=== PATIENT | male | born 1940 | race Caucasian/White ===

== ENCOUNTER 2018-09-10 18:26 | Inpatient (IN) | payer MEDICAID ==
[~2018-09-10] VITALS: Ht 165.1 cm; Wt 63.9 kg
[2018-09-10] MEDS ORDERED: ONDANSETRON 4 MG INJ IV STA (18:51)
[2018-09-10] MEDS ORDERED: SOD CHLORIDE 0.9% 1,000 ML IV STA (18:51)
[2018-09-10] MEDS ORDERED: morphine 4 MG/ML VIAL IV STA (18:51)
[2018-09-10] MEDS ORDERED: INSULIN LISPRO 100 UNIT/ML VIAL SC ONE (20:00)
[2018-09-10] MEDS ORDERED: ACCU-CHEK XX ONE (20:00)
[2018-09-10] MEDS ORDERED: NACL 0.9% 3 ML SYG IV SCH (20:30)
[2018-09-10] MEDS ORDERED: GLUCOSE GEL 15 GRAM TUBE BUCCAL PRN (20:30)
[2018-09-10] MEDS ORDERED: INSULIN GLARGINE [LANTus] (100 UNITS/ML) SYG SC ONE (20:30)
[2018-09-10] MEDS ORDERED: BISACODYL (EC) 5 MG TAB PO PRN (20:30)
[2018-09-10] MEDS ORDERED: DEXTROSE 50% 50 ML SYRINGE IV PRN ×2 (20:30)
[2018-09-10] MEDS ORDERED: DOCUSATE SODIUM 100 MG CAP PO PRN (20:30)
[2018-09-10] MEDS ORDERED: GLUCOSE GEL 15 GRAM TUBE PO PRN ×2 (20:30)
[2018-09-10] MEDS ORDERED: SOD CHLORIDE 0.9% 1,000 ML IV ONE (20:30)
[2018-09-10] MEDS ORDERED: GLUCAGON 1 MG INJ IM PRN (20:30)
--- NOTE | 2018-09-10 20:32 | ERD ---
ER Documentation Chief Complaint Chief Complaint FEELING WEAK X'S 3 DAYS, WITH ABD PAIN HPI Patient is a 78-year-old male with diabetes who presents with generalized weakness. The patient has lower abdominal pain and dizziness as well. The patient has had 3 days of symptoms. He recently got back from [facility] and forgot his diabetes medications there. The family does not know what medications he is supposed to be on. The patient denies fevers. He is urinating. Upon review of old medical records this is the patient's first visit to the emergency department. He does not currently have a primary doctor. ROS All systems reviewed and are negative except as per history of present illness. Allergies Allergies: Coded Allergies: No Known Allergy (Unverified , 09/10/18) PMhx/Soc History of Surgery: No Anesthesia Reaction: No Hx Neurological Disorder: No Hx Respiratory Disorders: No Hx Cardiac Disorders: No Hx Psychiatric Problems: No Hx Miscellaneous Medical Probl: No Hx Alcohol Use: No Hx Substance Use: No Hx Tobacco Use: No Smoking Status: Never smoker FmHx Family History: No diabetes Physical Exam Vitals Vital Signs Date Temp Pulse Resp B/P (MAP) Pulse Ox O2 O2 Flow FiO2 Time Delivery Rate 09/10/18 79 16 138/89 99 Room Air 19:57 (105) 09/10/18 98.3 87 18 130/73 98 18:29 (92) Physical Exam Const: No acute distress Head: Atraumatic Eyes: Normal Conjunctiva ENT: Normal External Ears, Nose and Mouth. Neck: Full range of motion. No meningismus. Resp: Clear to auscultation bilaterally Cardio: Regular rate and rhythm, no murmurs Abd: Soft, non tender, non distended. Normal bowel sounds Skin: No petechiae or rashes Back: No midline or flank tenderness Ext: No cyanosis, or edema Neur: Awake and alert Psych: Normal Mood and Affect Result Diagram: 09/10/18190409/10/181904 Results 24 hrs Laboratory Tests Test 09/10/18 19:05 09/10/18 20:08 White Blood Count 6.6 10^3/ul Red Blood Count 3.67 10^6/ul Hemoglobin 10.9 g/dl Hematocrit 32.1 % Mean Corpuscular Volume 87.5 fl Mean Corpuscular Hemoglobin 29.7 pg Mean Corpuscular Hemoglobin Concent 34.0 g/dl Red Cell Distribution Width 12.7 % Platelet Count 185 10^3/UL Mean Platelet Volume 11.3 fl Immature Granulocytes % 0.300 % Neutrophils % 62.3 % Lymphocytes % 24.8 % Monocytes % 7.3 % Eosinophils % 4.4 % Basophils % 0.9 % Nucleated Red Blood Cells % 0.0 /100WBC Immature Granulocytes # 0.020 10^3/ul Neutrophils # 4.1 10^3/ul Lymphocytes # 1.6 10^3/ul Monocytes # 0.5 10^3/ul Eosinophils # 0.3 10^3/ul Basophils # 0.1 10^3/ul Nucleated Red Blood Cells # 0.0 10^3/ul Sodium Level 133 mmol/L Potassium Level 4.9 mmol/L Chloride Level 99 mmol/L Carbon Dioxide Level 24 mmol/L Anion Gap 10 Blood Urea Nitrogen 32 mg/dl Creatinine 2.27 mg/dl Est Glomerular Filtrat Rate mL/min mL/min Glucose Level 660 mg/dl Calcium Level 9.0 mg/dl Total Bilirubin 0.2 mg/dl Direct Bilirubin 0.00 mg/dl Indirect Bilirubin 0.2 mg/dl Aspartate Amino Transf (AST/SGOT) 24 IU/L Alanine Aminotransferase (ALT/SGPT) 24 IU/L Alkaline Phosphatase 70 IU/L Total Protein 6.9 g/dl Albumin 3.8 g/dl Globulin 3.10 g/dl Albumin/Globulin Ratio 1.22 Lipase 279 U/L Urine Color STRAW Urine Clarity CLEAR Urine pH 6.0 Urine Specific [place] 1.014 Urine Ketones NEGATIVE mg/dL Urine Nitrite NEGATIVE mg/dL Urine Bilirubin NEGATIVE mg/dL Urine Urobilinogen NEGATIVE mg/dL Urine Leukocyte Esterase NEGATIVE David/ul Urine Hemoglobin NEGATIVE mg/dL Urine Glucose 3+ mg/dL Urine Total Protein NEGATIVE mg/dl Current Medications Medications Dose Sig/Ida Start Time Status Last (Trade) Ordered Route PRN Stop Time Admin Dose Reason Admin Sodium 1,000 ml @ Q1H STAT 09/10/18 DC 09/10/18 Chloride 1,000 mls/hr IV 18:51 19:29 09/10/18 19:50 Morphine 4 mg ONCE STAT 09/10/18 DC 09/10/18 Sulfate IV 18:51 19:29 (morphine) 09/10/18 18:52 Ondansetron 4 mg ONCE STAT 09/10/18 DC 09/10/18 HCl (Zofran IV 18:51 19:29 Inj) 09/10/18 18:52 Insulin 20 unit ONCE ONCE 09/10/18 DC 09/10/18 Human SC 20:00 20:06 Lispro 09/10/18 20:01 (Humalog) Diagnostic 1 ea 2 HRS AFTER 09/10/18 DC Test (Pha) HUMALOG ONCE 20:00 (Accu-Chek) XX 09/10/18 20:01 Insulin 15 units ONCE ONCE 09/10/18 Glargine SC 20:30 (Lantus) 09/10/18 20:31 1 ea NOTE XX 09/10/18 Miscellaneous 20:30 Information Glucose 15 gm Q15M PRN 09/10/18 (Glutose) PO DECREASED 20:30 GLUCOSE Glucose 22.5 gm Q15M PRN 09/10/18 (Glutose) PO DECREASED 20:30 GLUCOSE Dextrose 25 ml Q15M PRN 09/10/18 (D50w IV DECREASED 20:30 Syringe) GLUCOSE Dextrose 50 ml Q15M PRN 09/10/18 (D50w IV DECREASED 20:30 Syringe) GLUCOSE Glucagon 1 mg Q15M PRN 09/10/18 (Glucagen) IM DECREASED 20:30 GLUCOSE Glucose 15 gm Q15M PRN 09/10/18 (Glutose) BUCCAL 20:30 DECREASED GLUCOSE Sodium 1,000 ml @ Q1H ONCE 09/10/18 Chloride 1,000 mls/hr IV 20:30 09/10/18 21:29 Sodium 1,000 ml @ [id number] IV 09/10/18 Chloride 80 mls/hr 20:21 IV Flush 3 ml PER 09/10/18 (NS 3 ml) PROTOCOL IV 20:30 650 mg Q6H PRN 09/10/18 Acetaminophen PO .PAIN 1-3 20:30 (Tylenol OR TEMP Tab) Docusate 100 mg Q12H PRN 09/10/18 Sodium PO 20:30 (Colace) .CONSTIPATION Bisacodyl 5 mg DAILY PRN 09/10/18 (Dulcolax) PO 20:30 .CONSTIPATION Discontinue ONCE ONCE 09/10/18 Miscellaneous current oral XX 20:30 sulfonylur... 09/10/18 20:31 Information (* Miscellaneous Pharmacy Order) Diagnostic 1 ea 02 XX 09/11/18 Test (Pha) 02:00 (Accu-Chek) ONCE ONCE 09/10/18 Miscellaneous HYPOGLYCEMIA XX 20:30 PROTOCOL 09/10/18 20:31 Information w... (* Miscellaneous Pharmacy Order) Insulin NOVOLOG Q4 SC 09/10/18 Aspart *MILD* 21:00 (Novolog ALGORI... Insulin Pen) Discontinue ONCE ONCE 09/10/18 Miscellaneous all previ... XX 20:30 09/10/18 20:31 Information (* Miscellaneous Pharmacy Order) Procedures/MDM EKG read by me: Rate/Rhythm: Regular rate and rhythm at a normal rate Intervals: Normal Impression: No evidence of ischemia or arrhythmia Patient is a 78-year-old male with diabetes presents with generalized weakness. The patient was found to have acute renal failure. I have no old creatinine to compare to and the creatinine is greater than 2. The patient was found to have hyperglycemia with a sugar of 660 but no DKA. The patient was given normal saline 1 L bolus as well as Humalog 20 units subcutaneous. The patient will be admitted to the care of Dr. Chou from the panel team to a medical surgical bed. I doubt stroke or sepsis. Departure Diagnosis: Primary Impression: ARF (acute renal failure) Acute renal failure type: unspecified Qualified Codes: N17.9 - Acute kidney failure, unspecified Additional Impressions: Acute weakness Hyperglycemia Condition: FANTASMA Mario MD Sep 10, 2018 20:32
--- NOTE | 2018-09-10 20:37 | HP ---
Date/Time of Note Date/Time of Note DATE: 09/10/18 TIME: 20:37 Assessment/Plan VTE Prophylaxis SCD applied (from Nsg): Yes Pharmacological prophylaxis: NA/contraindicated Pharm contraindication: low risk/ambulating Lines/Catheters IV Catheter Type (from Nrsg): Saline Lock Assessment/Plan Hospital Course This is a 78-year-old male being admitted to the telemetry floor for: #1 severe hyperglycemia: Patient is not in DKA. Secondary to medication noncompliance. Will check hemoglobin A1c. Patient was given NovoLog in the emergency department, I will also order Lantus weight-based. Will check hemoglobin A1c. Insulin sliding scale. Urine microalbumin. #2 uncontrolled diabetes mellitus: Check hemoglobin A1c, optimize blood sugar regimen, will check lipid panel, TSH see #1. #3 RADHA: We do not have a previous baseline creatinine. Possibly mixed postrenal/medical renal in nature. Patient does have evidence of bladder outlet obstruction, hydroureteronephrosis, enlarged prostate on CT. Will hydrate the patient. Will obtain a renal ultrasound. Will insert Lucas catheter. Will check urine microanalysis and urine microalbumin. Will consult nephrology . Avoid nephrotoxic agents. #4 LUTS: Patient does report incomplete bladder emptying and dribbling. There is signs of enlarged prostate on the CT. Will obtain a ultrasound of the gallbladder. Will insert Lucas catheter. Will obtain urinalysis and urine microalbumin. Start the patient on Avodart. Will obtain a PSA levels. Will consult urology #5 normocytic anemia: No signs of bleeding. Will check iron stores #6 DVT GI prophylaxis: SCDs, no GI prophylaxis indicated Further treatment strategy will be implemented as per the clinical course. Result Diagram: 09/10/18190409/10/181904 Results 24hrs Laboratory Tests Test 09/10/18 19:05 09/10/18 20:08 White Blood Count 6.6 Red Blood Count 3.67 L Hemoglobin 10.9 L Hematocrit 32.1 L Mean Corpuscular Volume 87.5 Mean Corpuscular Hemoglobin 29.7 Mean Corpuscular Hemoglobin Concent 34.0 Red Cell Distribution Width 12.7 Platelet Count 185 Mean Platelet Volume 11.3 H Immature Granulocytes % 0.300 Neutrophils % 62.3 Lymphocytes % 24.8 Monocytes % 7.3 Eosinophils % 4.4 Basophils % 0.9 Nucleated Red Blood Cells % 0.0 Immature Granulocytes # 0.020 Neutrophils # 4.1 Lymphocytes # 1.6 Monocytes # 0.5 Eosinophils # 0.3 Basophils # 0.1 Nucleated Red Blood Cells # 0.0 Sodium Level 133 L Potassium Level 4.9 Chloride Level 99 Carbon Dioxide Level 24 Anion Gap 10 Blood Urea Nitrogen 32 H Creatinine 2.27 H Est Glomerular Filtrat Rate mL/min Glucose Level 660 *H Calcium Level 9.0 Total Bilirubin 0.2 Direct Bilirubin 0.00 Indirect Bilirubin 0.2 Aspartate Amino Transf (AST/SGOT) 24 Alanine Aminotransferase (ALT/SGPT) 24 Alkaline Phosphatase 70 Total Protein 6.9 Albumin 3.8 Globulin 3.10 Albumin/Globulin Ratio 1.22 Lipase 279 Urine Color STRAW Urine Clarity CLEAR Urine pH 6.0 Urine Specific [place] 1.014 Urine Ketones NEGATIVE Urine Nitrite NEGATIVE Urine Bilirubin NEGATIVE Urine Urobilinogen NEGATIVE Urine Leukocyte Esterase NEGATIVE Urine Hemoglobin NEGATIVE Urine Glucose 3+ H Urine Total Protein NEGATIVE HPI/ROS Admit Date/Time Admit Date/Time Hx of Present Illness Chief complaint: Generalized weakness and dizziness for the last few months This is a 78-year-old male with a past medical history of diabetes mellitus who presented to the emergency department complaining of generalized weakness. Patient reported generalized weakness and dizziness that is been going on for a few months. He is accompanied by his son. They stated that a neighbor checked the patient's blood sugar and it was noted to be very high and so the patient came into the emergency department. As per the patient he states that he stopped taking his medications approximately 3 to 4 months ago. He was on pills. He came from [facility] approximately 6 months ago. He was on pills for his diabetes medications. he denies any nausea vomiting or chest pain. He does report he feels numbness at times in his legs. Allergies: NKDA Medications none ROS Const: As per HPI Eyes : No pain discharge or redness or change in visual acuity ENT: No pain, sore throat, congestion, congestion, dysphagia or discharge Respiratory: No shortness of breath, cough, sputum, wheezing, or pleuritic pain Cardiovascular: No chest pain, palpitation, PND, or edema GI : no change in appetite, abdominal pain, nausea, vomiting, diarrhea, constipation, or change in the color his stool Genitourinary: Urinary retention, urinary dribbling Musculoskeletal: No joint pain, back pain, neck pain, restricted range of motion in neck or joints Skin: No rash, bruising or hives Neuro: As per HPI Endocrine: No polyuria, polydipsia, temperature intolerance Psych: No hallucination, depression, anxiety or suicidal ideation PMH/Family/Social Past Medical History Diabetes mellitus Medications Current Medications Miscellaneous Information 1 ea NOTE XX ; Start 09/10/18 at 20:30 Glucose (Glutose) 15 gm Q15M PRN PO DECREASED GLUCOSE; Start 09/10/18 at 20:30 Glucose (Glutose) 22.5 gm Q15M PRN PO DECREASED GLUCOSE; Start 09/10/18 at 20:30 Dextrose (D50w Syringe) 25 ml Q15M PRN IV DECREASED GLUCOSE; Start 09/10/18 at 20:30 Dextrose (D50w Syringe) 50 ml Q15M PRN IV DECREASED GLUCOSE; Start 09/10/18 at 20:30 Glucagon (Glucagen) 1 mg Q15M PRN IM DECREASED GLUCOSE; Start 09/10/18 at 20:30 Glucose (Glutose) 15 gm Q15M PRN BUCCAL DECREASED GLUCOSE; Start 09/10/18 at 20:30 Sodium Chloride 1,000 ml @ 1,000 mls/hr Q1H ONCE IV ; Start 09/10/18 at 20:30; Stop 09/10/18 at 21:29 Sodium Chloride 1,000 ml @ 80 mls/hr [id number] IV ; Start 09/10/18 at 20:21 IV Flush (NS 3 ml) 3 ml PER PROTOCOL IV ; Start 09/10/18 at 20:30 Acetaminophen (Tylenol Tab) 650 mg Q6H PRN PO .PAIN 1-3 OR TEMP; Start 09/10/18 at 20:30 Docusate Sodium (Colace) 100 mg Q12H PRN PO .CONSTIPATION; Start 09/10/18 at 20:30 Bisacodyl (Dulcolax) 5 mg DAILY PRN PO .CONSTIPATION; Start 09/10/18 at 20:30 Diagnostic Test (Pha) (Accu-Chek) 1 ea 02 XX ; Start 09/11/18 at 02:00 Insulin Aspart (Novolog Insulin Pen) NOVOLOG *MILD* ALGORI... Q4 SC ; Start 09/10/18 at 21:00 Coded Allergies: No Known Allergy (Unverified , 09/10/18) Past Surgical History Appendectomy Family History Significant Family History: no pertinent family hx Social History Alcohol Use: none Smoking Status: Never smoker Drug Use: none Exam/Review of Systems Vital Signs Vitals Vital Signs Date Temp Pulse Resp B/P (MAP) Pulse Ox O2 O2 Flow FiO2 Time Delivery Rate 09/10/18 79 16 138/89 99 Room Air 19:57 (105) 09/10/18 98.3 18:29 Exam Exam General: Patient is a pleasant male currently lying in bed in no acute distress HEENT: Atraumatic, normocephalic. The pupils are equal, round and reactive. Extraocular motor are intact Neck: Supple with full range of motion. No rigidity or meningismus Chest: Nontender Lungs: Clear to auscultation bilaterally no crackles rales or wheezing Heart: Normal S1-S2, Regular rhythm and rate. No murmur, S3, or S4 Abdomen: Soft , mild suprapubic abdominal distention , bowel sounds are present. No guarding no rebound tenderness , No masses or organomegaly. No costovertebral temporal angle mass Extremities: Normal to inspection, no edema no cyanosis Neurologic: Normal mental status, speech normal, cranial nerves II through XII are intact, motor and sensory are intact, no focal weakness Skin: No lesions noted of the bilateral feet Additional Comments PROCEDURE: CT Abdomen and Pelvis without intravenous contrast. CLINICAL INDICATION: Abdominal Pain . TECHNIQUE: CT scan of the abdomen and pelvis without intravenous contrast was performed on a multi-detector high-resolution CT scanner. Coronal and sagittal reformatted images were obtained from the axial source images. DICOM images are available. CTDIvol 7.91 mGy, and DLP 484.1 mGy.cm. One or more of the following dose reduction techniques were used: - Automated exposure control. - Adjustment of the mA and/or kV according to patient size. - Use of iterative reconstruction technique. COMPARISON: None available FINDINGS: In the absence of intravenous contrast, the study constitutes a limited assessment of the solid organs, bowel and vessels. Lower thorax: Normal. Liver: Relative hypertrophy of the left hepatic lobe and caudate lobe. No focal liver lesions. Biliary: Gallbladder is normal. No intrahepatic or extrahepatic biliary dilatation. Pancreas: Normal. Spleen: Normal. Adrenal Glands: Normal. Urinary: There is marked distension of the urinary bladder. There is a small diverticulum at the bladder dome. Mild trabecular thickening of the bladder wall. There is bilateral mild hydroureter. No robyn calyceal dilatation or hydronephrosis. There is a 3.6 cm cyst at the posterior mid right kidney. No obstructing renal stones. Gastrointestinal: No bowel wall thickening or inflammatory changes. No evidence of bowel obstruction. No evidence of appendicitis. Lymph nodes: There is an enlarged left periaortic lymph node which measures 2.0 cm in short axis. Vascular: There are atherosclerotic calcifications of the aorta and iliac branches, without evidence of aneurysm. Peritoneum/mesentery: No free fluid or free air. Reproductive organs: Prostate gland is markedly enlarged and measures approximately 142 cc. Musculoskeletal: Degenerative changes of the spine. IMPRESSION: 1. Enlarged prostate gland. Correlate with PSA. 2. Marked distension of the bladder with mild trabeculated wall thickening, likely related to chronic bladder outlet obstruction. Mild bilateral hydroureter, also likely related to bladder outlet obstruction and urinary retention. Consider placement of Lucas catheter. 3. Enlarged left periaortic lymph node measures 2.0 cm. Neoplasm not excluded. Recommend attention on follow-up. RPTAT: QQ Physician Elizabeth Date Time Electronically viewed and signed by Nicolas Arango Physician on 09/10/2018 19:58 HtN/ CC: FANTASMA CALLAWAY MD [id number] SOLO AL Sep 10, 2018 20:37
[2018-09-10] MEDS: INSULIN ASPART [NOVOLOG] 3 ML PEN SC SCH (21:00)
[2018-09-11] VITALS (7 sets, daily range): BP systolic 111–141; BP diastolic 65–79; PULSE 71–103; RESP 18; Ht 165.1 cm; Wt 63.9 kg
[2018-09-11] MEDS: INSULIN ASPART [NOVOLOG] 3 ML PEN SC SCH ×8 (00:27→20:04)
[2018-09-11] MEDS: SOD CHLORIDE 0.9% 1,000 ML IV SCH ×4 (00:28→21:21)
[2018-09-11] MEDS: ACCU-CHEK XX SCH (02:00)
[2018-09-11] MEDS: DUTASTERIDE 0.5 MG CAP PO SCH (08:28)
--- NOTE | 2018-09-11 11:47 | CONS ---
Assessment/Plan Assessment/Plan Assessment/Plan (Daily) 1. acute kidney injury on possible CKD due to Bladder outlet obstruction from BPH 2. Bladder outlet obstruction 2/2 BPH with moderate Bilateral hydronephrosis 3. BPH 4. 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 Uncontrolled DM with BS in 600s 6. H/o HL Plan: Avodart 0.5 mg po daily, Flomax 0.4 mg pO BID IVF NS at 80 cc/h keep winter catheter in , will d/c it in AM Renal US showed CKD, Moderate hydronephrosis, - expecting it to improve after Winter Need better glycemic control Social work consult ot help him apply for insurance Thanks for consultation , I will continue to follow up Consultation Date/Type/Reason Admit Date/Time 09/11/2018 Date of Consultation: Sep 11, 2018 Type of Consult NEPHROLOGY Reason for Consultation acute hyperkalemia, acute renal failure Requesting Provider: TYRONE HARTMAN NP Date/Time of Note DATE: 09/11/18 TIME: 11:47 Hx of Present Illness 78-year-old male with a past medical history of diabetes mellitus who presented to the emergency department complaining of generalized weakness. Patient reported generalized weakness and dizziness that is been going on for a few mo nths. He came from [facility] 6 months ago- BUN/Cr 261.7 on admission renal has been consulted for CELINA vs Celina on CKD. Constitutional: no complaints Eyes: no complaints ENT: no complaints Respiratory: no complaints Cardiovascular: no complaints Gastrointestinal: no complaints Genitourinary: no complaints Musculoskeletal: no complaints Skin: no complaints Neurologic: no complaints Endocrine: no complaints Lymphatic: no complaints Psychological: no complaints Immunologic: no complaints Past Medical History Medical History: diabetes, high cholesterol, hypertension, other (BPH) Medications Current Medications Miscellaneous Information 1 ea NOTE XX ; Start 09/10/18 at 20:30 Glucose (Glutose) 15 gm Q15M PRN PO DECREASED GLUCOSE; Start 09/10/18 at 20:30 Glucose (Glutose) 22.5 gm Q15M PRN PO DECREASED GLUCOSE; Start 09/10/18 at 20:30 Dextrose (D50w Syringe) 25 ml Q15M PRN IV DECREASED GLUCOSE; Start 09/10/18 at 20:30 Dextrose (D50w Syringe) 50 ml Q15M PRN IV DECREASED GLUCOSE; Start 09/10/18 at 20:30 Glucagon (Glucagen) 1 mg Q15M PRN IM DECREASED GLUCOSE; Start 09/10/18 at 20:30 Glucose (Glutose) 15 gm Q15M PRN BUCCAL DECREASED GLUCOSE; Start 09/10/18 at 20:30 Sodium Chloride 1,000 ml @ 80 mls/hr [id number] IV Last administered on 09/11/18at 00:28; Admin Dose 80 MLS/HR; Start 09/10/18 at 20:21 IV Flush (NS 3 ml) 3 ml PER PROTOCOL IV ; Start 09/10/18 at 20:30 Acetaminophen (Tylenol Tab) 650 mg Q6H PRN PO .PAIN 1-3 OR TEMP; Start 09/10/18 at 20:30 Docusate Sodium (Colace) 100 mg Q12H PRN PO .CONSTIPATION; Start 09/10/18 at 20:30 Bisacodyl (Dulcolax) 5 mg DAILY PRN PO .CONSTIPATION; Start 09/10/18 at 20:30 Diagnostic Test (Pha) (Accu-Chek) 1 ea 02 XX ; Start 09/11/18 at 02:00 Dutasteride (Avodart) 0.5 mg DAILY PO Last administered on 09/11/18at 08:28; Admin Dose 0.5 MG; Start 09/11/18 at 09:00 Insulin Aspart (Novolog Insulin Pen) 5 unit WITH MEALS SC ; Start 09/11/18 at 11:50 Insulin Aspart (Novolog Insulin Pen) NOVOLOG *MILD* ALGORITHM WITH MEALS BEDTIME SC ; Start 09/11/18 at 11:50 Miscellaneous Information (* Miscellaneous Pharmacy Order) Discontinue all previ... ONCE ONCE XX ; Start 09/11/18 at 12:00; Stop 09/11/18 at 12:01 Fish Oil (Fish Oil) 2,000 mg BID PO ; Start 09/11/18 at 12:00 Insulin Glargine (Lantus) 16 units DAILY@0800 SC ; Start 09/11/18 at 12:00 Allergies: Coded Allergies: No Known Allergy (Unverified , 09/10/18) Past Surgical History Past Surgical Hx: no surgical history Family History Significant Family History: no pertinent family hx Social History Alcohol Use: none Smoking Status: Never smoker Drug Use: none Exam/Review of Systems Exam Vitals Vital Signs Date Temp Pulse Resp B/P (MAP) Pulse Ox O2 O2 Flow FiO2 Time Delivery Rate 09/11/18 98.2 79 18 129/76 96 11:30 (93) 09/10/18 Room Air 23:38 Intake and Output 09/10/18 09/10/18 09/11/18 1515:00 23:00 07:00 OutputOutput Total 1500 ml BalanceBalance -1500 ml Constitutional: alert Head: normocephalic Eyes: nl conjunctiva ENMT: nl external ears & nose Neck: supple, non-tender Respiratory: clear to auscultation, congested cough, diminished breath sounds Cardiovascular: regular rate and rhythm, nl pulses Gastrointestinal: soft, non-tender Musculoskeletal: nl extremities to inspection, muscle weakness Extremities: normal pulses Neurological: FEATHER STITCHER II-XII intact, nl mental status, nl speech, nl strength Skin: nl turgor Lymph: nl lymph nodes Results Result Diagram: 09/11/18 0559 09/11/18 0559 Results 24hrs Laboratory Tests Test 09/10/18 19:05 09/10/18 20:08 09/10/18 22:00 09/11/18 00:25 White Blood Count 6.6 Red Blood Count 3.67 L Hemoglobin 10.9 L Hematocrit 32.1 L Mean Corpuscular 87.5 Volume Mean Corpuscular 29.7 Hemoglobin Mean Corpuscular 34.0 Hemoglobin Concent Red Cell 12.7 Distribution Width Platelet Count 185 Mean Platelet Volume 11.3 H Immature 0.300 Granulocytes % Neutrophils % 62.3 Lymphocytes % 24.8 Monocytes % 7.3 Eosinophils % 4.4 Basophils % 0.9 Nucleated Red Blood 0.0 Cells % Immature 0.020 Granulocytes # Neutrophils # 4.1 Lymphocytes # 1.6 Monocytes # 0.5 Eosinophils # 0.3 Basophils # 0.1 Nucleated Red Blood 0.0 Cells # Sodium Level 133 L Potassium Level 4.9 Chloride Level 99 Carbon Dioxide Level 24 Anion Gap 10 Blood Urea Nitrogen 32 H Creatinine 2.27 H Est Glomerular Filtrat Rate mL/min Glucose Level 660 *H Calcium Level 9.0 Total Bilirubin 0.2 Direct Bilirubin 0.00 Indirect Bilirubin 0.2 Aspartate Amino 24 Transf (AST/SGOT) Alanine 24 Aminotransferase (AL T/SGPT) Alkaline Phosphatase 70 Total Protein 6.9 Albumin 3.8 Globulin 3.10 Albumin/Globulin 1.22 Ratio Lipase 279 Urine Color STRAW Urine Clarity CLEAR Urine pH 6.0 Urine Specific 1.014 [place] Urine Ketones NEGATIVE Urine Nitrite NEGATIVE Urine Bilirubin NEGATIVE Urine Urobilinogen NEGATIVE Urine Leukocyte NEGATIVE Esterase Urine Hemoglobin NEGATIVE Urine Glucose 3+ H Urine Total Protein NEGATIVE Bedside Glucose 148 109 Test 09/11/18 04:46 09/11/18 05:59 09/11/18 08:27 Bedside Glucose 209 162 White Blood Count 8.6 # Red Blood Count 3.62 L Hemoglobin 10.6 L Hematocrit 31.3 L Mean Corpuscular 86.5 Volume Mean Corpuscular 29.3 Hemoglobin Mean Corpuscular 33.9 Hemoglobin Concent Red Cell 12.6 Distribution Width Platelet Count 176 Mean Platelet Volume 11.2 H Immature 0.500 H Granulocytes % Neutrophils % 68.7 Lymphocytes % 20.5 Monocytes % 6.6 Eosinophils % 3.2 Basophils % 0.5 Nucleated Red Blood 0.0 Cells % Immature 0.040 H Granulocytes # Neutrophils # 5.9 Lymphocytes # 1.8 Monocytes # 0.6 Eosinophils # 0.3 Basophils # 0.0 Nucleated Red Blood 0.0 Cells # Sodium Level 142 Potassium Level 4.1 Chloride Level 109 # Carbon Dioxide Level 26 Anion Gap 7 Blood Urea Nitrogen 26 H Creatinine 1.70 H Est Glomerular Filtrat Rate mL/min Glucose Level 202 # Hemoglobin A1c 12.9 H Calcium Level 8.6 Magnesium Level 1.6 L Iron Level 45 Total Iron Binding 242 Capacity Percent Iron 19 L Saturation Ferritin 247.0 Total Bilirubin 0.2 Direct Bilirubin 0.00 Indirect Bilirubin 0.2 Aspartate Amino 23 Transf (AST/SGOT) Alanine 24 Aminotransferase (AL T/SGPT) Alkaline Phosphatase 48 Total Protein 6.2 Albumin 3.3 Globulin 2.90 Albumin/Globulin 1.13 Ratio Triglycerides Level 251 H Cholesterol Level 188 LDL Cholesterol, 110 Calculated HDL Cholesterol 28 L Cholesterol/HDL 6.7 Ratio Thyroid Stimulating 5.770 H Hormone (TSH) Medications Medication Current Medications Miscellaneous Information 1 ea NOTE XX ; Start 09/10/18 at 20:30 Glucose (Glutose) 15 gm Q15M PRN PO DECREASED GLUCOSE; Start 09/10/18 at 20:30 Glucose (Glutose) 22.5 gm Q15M PRN PO DECREASED GLUCOSE; Start 09/10/18 at 20:30 Dextrose (D50w Syringe) 25 ml Q15M PRN IV DECREASED GLUCOSE; Start 09/10/18 at 20:30 Dextrose (D50w Syringe) 50 ml Q15M PRN IV DECREASED GLUCOSE; Start 09/10/18 at 20:30 Glucagon (Glucagen) 1 mg Q15M PRN IM DECREASED GLUCOSE; Start 09/10/18 at 20:30 Glucose (Glutose) 15 gm Q15M PRN BUCCAL DECREASED GLUCOSE; Start 09/10/18 at 20:30 Sodium Chloride 1,000 ml @ 80 mls/hr [id number] IV Last administered on 09/11/18at 00:28; Admin Dose 80 MLS/HR; Start 09/10/18 at 20:21 IV Flush (NS 3 ml) 3 ml PER PROTOCOL IV ; Start 09/10/18 at 20:30 Acetaminophen (Tylenol Tab) 650 mg Q6H PRN PO .PAIN 1-3 OR TEMP; Start 09/10/18 at 20:30 Docusate Sodium (Colace) 100 mg Q12H PRN PO .CONSTIPATION; Start 09/10/18 at 20:30 Bisacodyl (Dulcolax) 5 mg DAILY PRN PO .CONSTIPATION; Start 09/10/18 at 20:30 Diagnostic Test (Pha) (Accu-Chek) 1 ea 02 XX ; Start 09/11/18 at 02:00 Dutasteride (Avodart) 0.5 mg DAILY PO Last administered on 09/11/18at 08:28; Admin Dose 0.5 MG; Start 09/11/18 at 09:00 Insulin Aspart (Novolog Insulin Pen) 5 unit WITH MEALS SC ; Start 09/11/18 at 11:50 Insulin Aspart (Novolog Insulin Pen) NOVOLOG *MILD* ALGORITHM WITH MEALS BEDTIME SC ; Start 09/11/18 at 11:50 Miscellaneous Information (* Miscellaneous Pharmacy Order) Discontinue all previ... ONCE ONCE XX ; Start 09/11/18 at 12:00; Stop 09/11/18 at 12:01 Fish Oil (Fish Oil) 2,000 mg BID PO ; Start 09/11/18 at 12:00 Insulin Glargine (Lantus) 16 units DAILY@0800 SC ; Start 09/11/18 at 12:00 JACQUELINE TAYLOR MD Sep 11, 2018 11:47
--- NOTE | 2018-09-11 11:52 | PN ---
Date/Time of Note Date/Time of Note DATE: 09/11/18 TIME: 11:51 Assessment/Plan VTE Prophylaxis Risk score (from Nsg)>0 risk: 3 SCD applied (from Nsg): Yes Pharmacological prophylaxis: NA/contraindicated Pharm contraindication: low risk/ambulating Lines/Catheters IV Catheter Type (from Nrsg): Peripheral IV Urinary Cath still in place: No Assessment/Plan Hospital Course SUBJECTIVE: Lying in bed comfortably. No acute discomfort. OBJECTIVE: Vital signs-see below PHYSICAL EXAM: Constitutional: Adequately built,not in acute distress. HEENT: Head atraumatic and normocephalic. Eyes: Extraocular muscles intact. Anicteric sclerae. Pupils equal bilaterally, reactive to light. NECK: Supple without lymph node. CHEST: Clear and good breath sounds equally. No wheezing. No rhonchi. HEART: S1, S2. Regular rate and rhythm. ABDOMEN: Soft/non tender with no rebound tenderness. Bowel sounds were present. EXTREMITIES: No cyanosis, clubbing or edema. NEUROLOGIC: Alert and oriented x3. No focal deficit. No sensory deficit. PSYCHOSOCIAL: No signs of depression. INTEGUMENTARY: No open wounds. ASSESSMENT AND PLAN:78 yo M w/DM2,not taking meds 2/2 insurance limitations, here w/generlized weakness found to have BS 660.. Uncontrolled hyperglycemia W/poorly managed DMII -Start basal/bolus insulin -CM to assist with Medi-[employer] application so patient can be discharged on appropriate regimen -DM education Enlarged prostate w/ bladder outlet obstruction -Patient does have LUTS-s/p Lucas placed. -PSA pending. Urology consultation -On Avodart Acute kidney injury, likely postrenal -Improving after Lucas placed. -Continue to monitor. Chronic anemia -Iron panel noted. Will give oral iron replacement. Triglyceridemia -Start fish oil supplementation Elevated TSH -Add T4 levels DVT prophylaxis: SCDs Disposition: Continue current management. Case management to assist with Medi- [employer] application. Diabetic education. Follow-up urology recommendation regarding enlarged prostate w/ urinary symptoms. Patient was seen in collaboration with Dr. Rm. Result Diagram: 09/11/18 0559 09/11/18 0559 Results 24hrs Laboratory Tests Test 09/10/18 19:05 09/10/18 20:08 09/10/18 22:00 09/11/18 00:25 White Blood Count 6.6 Red Blood Count 3.67 L Hemoglobin 10.9 L Hematocrit 32.1 L Mean Corpuscular 87.5 Volume Mean Corpuscular 29.7 Hemoglobin Mean Corpuscular 34.0 Hemoglobin Concent Red Cell 12.7 Distribution Width Platelet Count 185 Mean Platelet Volume 11.3 H Immature 0.300 Granulocytes % Neutrophils % 62.3 Lymphocytes % 24.8 Monocytes % 7.3 Eosinophils % 4.4 Basophils % 0.9 Nucleated Red Blood 0.0 Cells % Immature 0.020 Granulocytes # Neutrophils # 4.1 Lymphocytes # 1.6 Monocytes # 0.5 Eosinophils # 0.3 Basophils # 0.1 Nucleated Red Blood 0.0 Cells # Sodium Level 133 L Potassium Level 4.9 Chloride Level 99 Carbon Dioxide Level 24 Anion Gap 10 Blood Urea Nitrogen 32 H Creatinine 2.27 H Est Glomerular Filtrat Rate mL/min Glucose Level 660 *H Calcium Level 9.0 Total Bilirubin 0.2 Direct Bilirubin 0.00 Indirect Bilirubin 0.2 Aspartate Amino 24 Transf (AST/SGOT) Alanine 24 Aminotransferase (AL T/SGPT) Alkaline Phosphatase 70 Total Protein 6.9 Albumin 3.8 Globulin 3.10 Albumin/Globulin 1.22 Ratio Lipase 279 Urine Color STRAW Urine Clarity CLEAR Urine pH 6.0 Urine Specific 1.014 [place] Urine Ketones NEGATIVE Urine Nitrite NEGATIVE Urine Bilirubin NEGATIVE Urine Urobilinogen NEGATIVE Urine Leukocyte NEGATIVE Esterase Urine Hemoglobin NEGATIVE Urine Glucose 3+ H Urine Total Protein NEGATIVE Bedside Glucose 148 109 Test 09/11/18 04:46 09/11/18 05:59 09/11/18 08:27 Bedside Glucose 209 162 White Blood Count 8.6 # Red Blood Count 3.62 L Hemoglobin 10.6 L Hematocrit 31.3 L Mean Corpuscular 86.5 Volume Mean Corpuscular 29.3 Hemoglobin Mean Corpuscular 33.9 Hemoglobin Concent Red Cell 12.6 Distribution Width Platelet Count 176 Mean Platelet Volume 11.2 H Immature 0.500 H Granulocytes % Neutrophils % 68.7 Lymphocytes % 20.5 Monocytes % 6.6 Eosinophils % 3.2 Basophils % 0.5 Nucleated Red Blood 0.0 Cells % Immature 0.040 H Granulocytes # Neutrophils # 5.9 Lymphocytes # 1.8 Monocytes # 0.6 Eosinophils # 0.3 Basophils # 0.0 Nucleated Red Blood 0.0 Cells # Sodium Level 142 Potassium Level 4.1 Chloride Level 109 # Carbon Dioxide Level 26 Anion Gap 7 Blood Urea Nitrogen 26 H Creatinine 1.70 H Est Glomerular Filtrat Rate mL/min Glucose Level 202 # Hemoglobin A1c 12.9 H Calcium Level 8.6 Magnesium Level 1.6 L Iron Level 45 Total Iron Binding 242 Capacity Percent Iron 19 L Saturation Ferritin 247.0 Total Bilirubin 0.2 Direct Bilirubin 0.00 Indirect Bilirubin 0.2 Aspartate Amino 23 Transf (AST/SGOT) Alanine 24 Aminotransferase (AL T/SGPT) Alkaline Phosphatase 48 Total Protein 6.2 Albumin 3.3 Globulin 2.90 Albumin/Globulin 1.13 Ratio Triglycerides Level 251 H Cholesterol Level 188 LDL Cholesterol, 110 Calculated HDL Cholesterol 28 L Cholesterol/HDL 6.7 Ratio Thyroid Stimulating 5.770 H Hormone (TSH) Exam/Review of Systems Exam Vitals Vital Signs Date Temp Pulse Resp B/P (MAP) Pulse Ox O2 O2 Flow FiO2 Time Delivery Rate 09/11/18 98.4 71 18 127/65 98 07:59 (85) 09/10/18 Room Air 23:38 Intake and Output 09/10/18 09/10/18 09/11/18 1515:00 23:00 07:00 OutputOutput Total 1500 ml BalanceBalance -1500 ml Results Results 24hrs Laboratory Tests Test 09/10/18 19:05 09/10/18 20:08 09/10/18 22:00 09/11/18 00:25 White Blood Count 6.6 Red Blood Count 3.67 L Hemoglobin 10.9 L Hematocrit 32.1 L Mean Corpuscular 87.5 Volume Mean Corpuscular 29.7 Hemoglobin Mean Corpuscular 34.0 Hemoglobin Concent Red Cell 12.7 Distribution Width Platelet Count 185 Mean Platelet Volume 11.3 H Immature 0.300 Granulocytes % Neutrophils % 62.3 Lymphocytes % 24.8 Monocytes % 7.3 Eosinophils % 4.4 Basophils % 0.9 Nucleated Red Blood 0.0 Cells % Immature 0.020 Granulocytes # Neutrophils # 4.1 Lymphocytes # 1.6 Monocytes # 0.5 Eosinophils # 0.3 Basophils # 0.1 Nucleated Red Blood 0.0 Cells # Sodium Level 133 L Potassium Level 4.9 Chloride Level 99 Carbon Dioxide Level 24 Anion Gap 10 Blood Urea Nitrogen 32 H Creatinine 2.27 H Est Glomerular Filtrat Rate mL/min Glucose Level 660 *H Calcium Level 9.0 Total Bilirubin 0.2 Direct Bilirubin 0.00 Indirect Bilirubin 0.2 Aspartate Amino 24 Transf (AST/SGOT) Alanine 24 Aminotransferase (AL T/SGPT) Alkaline Phosphatase 70 Total Protein 6.9 Albumin 3.8 Globulin 3.10 Albumin/Globulin 1.22 Ratio Lipase 279 Urine Color STRAW Urine Clarity CLEAR Urine pH 6.0 Urine Specific 1.014 [place] Urine Ketones NEGATIVE Urine Nitrite NEGATIVE Urine Bilirubin NEGATIVE Urine Urobilinogen NEGATIVE Urine Leukocyte NEGATIVE Esterase Urine Hemoglobin NEGATIVE Urine Glucose 3+ H Urine Total Protein NEGATIVE Bedside Glucose 148 109 Test 09/11/18 04:46 09/11/18 05:59 09/11/18 08:27 Bedside Glucose 209 162 White Blood Count 8.6 # Red Blood Count 3.62 L Hemoglobin 10.6 L Hematocrit 31.3 L Mean Corpuscular 86.5 Volume Mean Corpuscular 29.3 Hemoglobin Mean Corpuscular 33.9 Hemoglobin Concent Red Cell 12.6 Distribution Width Platelet Count 176 Mean Platelet Volume 11.2 H Immature 0.500 H Granulocytes % Neutrophils % 68.7 Lymphocytes % 20.5 Monocytes % 6.6 Eosinophils % 3.2 Basophils % 0.5 Nucleated Red Blood 0.0 Cells % Immature 0.040 H Granulocytes # Neutrophils # 5.9 Lymphocytes # 1.8 Monocytes # 0.6 Eosinophils # 0.3 Basophils # 0.0 Nucleated Red Blood 0.0 Cells # Sodium Level 142 Potassium Level 4.1 Chloride Level 109 # Carbon Dioxide Level 26 Anion Gap 7 Blood Urea Nitrogen 26 H Creatinine 1.70 H Est Glomerular Filtrat Rate mL/min Glucose Level 202 # Hemoglobin A1c 12.9 H Calcium Level 8.6 Magnesium Level 1.6 L Iron Level 45 Total Iron Binding 242 Capacity Percent Iron 19 L Saturation Ferritin 247.0 Total Bilirubin 0.2 Direct Bilirubin 0.00 Indirect Bilirubin 0.2 Aspartate Amino 23 Transf (AST/SGOT) Alanine 24 Aminotransferase (AL T/SGPT) Alkaline Phosphatase 48 Total Protein 6.2 Albumin 3.3 Globulin 2.90 Albumin/Globulin 1.13 Ratio Triglycerides Level 251 H Cholesterol Level 188 LDL Cholesterol, 110 Calculated HDL Cholesterol 28 L Cholesterol/HDL 6.7 Ratio Thyroid Stimulating 5.770 H Hormone (TSH) Medications Medication Current Medications Miscellaneous Information 1 ea NOTE XX ; Start 09/10/18 at 20:30 Glucose (Glutose) 15 gm Q15M PRN PO DECREASED GLUCOSE; Start 09/10/18 at 20:30 Glucose (Glutose) 22.5 gm Q15M PRN PO DECREASED GLUCOSE; Start 09/10/18 at 20:30 Dextrose (D50w Syringe) 25 ml Q15M PRN IV DECREASED GLUCOSE; Start 09/10/18 at 20:30 Dextrose (D50w Syringe) 50 ml Q15M PRN IV DECREASED GLUCOSE; Start 09/10/18 at 20:30 Glucagon (Glucagen) 1 mg Q15M PRN IM DECREASED GLUCOSE; Start 09/10/18 at 20:30 Glucose (Glutose) 15 gm Q15M PRN BUCCAL DECREASED GLUCOSE; Start 09/10/18 at 20:30 Sodium Chloride 1,000 ml @ 80 mls/hr [id number] IV Last administered on 09/11/18at 00:28; Admin Dose 80 MLS/HR; Start 09/10/18 at 20:21 IV Flush (NS 3 ml) 3 ml PER PROTOCOL IV ; Start 09/10/18 at 20:30 Acetaminophen (Tylenol Tab) 650 mg Q6H PRN PO .PAIN 1-3 OR TEMP; Start 09/10/18 at 20:30 Docusate Sodium (Colace) 100 mg Q12H PRN PO .CONSTIPATION; Start 09/10/18 at 20:30 Bisacodyl (Dulcolax) 5 mg DAILY PRN PO .CONSTIPATION; Start 09/10/18 at 20:30 Diagnostic Test (Pha) (Accu-Chek) 1 ea 02 XX ; Start 09/11/18 at 02:00 Insulin Aspart (Novolog Insulin Pen) NOVOLOG *MILD* ALGORI... Q4 SC Last administered on 09/11/18at 08:32; Admin Dose 1 UNIT; Start 09/10/18 at 21:00 Dutasteride (Avodart) 0.5 mg DAILY PO Last administered on 09/11/18at 08:28; Admin Dose 0.5 MG; Start 09/11/18 at 09:00 TYRONE HARTMAN NP Sep 11, 2018 11:52
[2018-09-11] MEDS: FISH OIL 1,000 MG CAP PO SCH ×2 (12:55→20:02)
[2018-09-11] MEDS: FERROUS SULFATE (EC) 325 MG TAB PO SCH (12:56)
[2018-09-11] MEDS: INSULIN GLARGINE [LANTus] (100 UNITS/ML) SYG SC SCH (13:00)
--- NOTE | 2018-09-11 19:26 | CONS ---
Assessment/Plan Assessment/Plan Hospital Course (Demo Recall) 78-year-old male with a past medical history of diabetes mellitus presented to the emergency department complaining of generalized weakness. Patient reported generalized weakness and dizziness that is been going on for a few months. The patient neighbor checked his blood sugar for him and was very high. The patient came into the emergency room and states that he has not taken his diabetes medication for 4 to 6 months. He underwent a CT scan of the abdomen and pelvis and that showed urinary retention with the bladder distended up to the umbilicus. A Lucas catheter was inserted and a urological consultation was requested. Patient states that he does have nocturia 3-4 times and during the day he voids about 6 times. He does have terminal dysuria. He denies any history of gross hematuria. He does have a slow urinary stream and he feels he does not empty his bladder well. He has had diabetes since 2001 in addition to hypertension and dyslipidemia. Presently the patient is awake and alert and comfortable. His Lucas catheter is draining clear urine. The external genitalia are normal. The bladder is not distended. He does have a very large median lobe of the prostate that is protruding into the bladder on the ultrasound and the CT scan. Recommendation is to start him on tamsulosin 1 capsule twice a day. Then discontinue the Lucas catheter and see if he is able to urinate on his own. Once he is stable he may be discharged home and he should follow-up with the uro logist at [facility]. Consultation Date/Type/Reason Admit Date/Time September 10, 2018 Date of Consultation: Sep 11, 2018 Type of Consult Urology Reason for Consultation Urinary retention and enlarged prostate Requesting Provider: SOLO AL Date/Time of Note DATE: 09/11/18 TIME: 19:15 Hx of Present Illness 78-year-old male with a past medical history of diabetes mellitus presented to the emergency department complaining of generalized weakness. Patient reported generalized weakness and dizziness that is been going on for a few months. The patient neighbor checked his blood sugar for him and was very high. The patient came into the emergency room and states that he has not taken his diabetes medi cation for 4 to 6 months. He underwent a CT scan of the abdomen and pelvis and that showed urinary retention with the bladder distended up to the umbilicus. A Lucas catheter was inserted and a urological consultation was requested. Patient states that he does have nocturia 3-4 times and during the day he voids about 6 times. He does have terminal dysuria. He denies any history of gross hematuria. He does have a slow urinary stream and he feels he does not empty his bladder well. He has had diabetes since 2001 in addition to hypertension and dyslipidemia. Constitutional: no complaints Eyes: no complaints ENT: no complaints Respiratory: no complaints; No wheezing Cardiovascular: no complaints Gastrointestinal: no complaints; No nausea, No vomiting Genitourinary: dysuria (Terminal), other (No urinary incontinence and no bedwet ting) Musculoskeletal: no complaints Skin: no complaints Neurologic: no complaints Endocrine: no complaints Psychological: no complaints Past Medical History Medical History: diabetes, high cholesterol, hypertension Medications Current Medications Miscellaneous Information 1 ea NOTE XX ; Start 09/10/18 at 20:30 Glucose (Glutose) 15 gm Q15M PRN PO DECREASED GLUCOSE; Start 09/10/18 at 20:30 Glucose (Glutose) 22.5 gm Q15M PRN PO DECREASED GLUCOSE; Start 09/10/18 at 20:30 Dextrose (D50w Syringe) 25 ml Q15M PRN IV DECREASED GLUCOSE; Start 09/10/18 at 20:30 Dextrose (D50w Syringe) 50 ml Q15M PRN IV DECREASED GLUCOSE; Start 09/10/18 at 20:30 Glucagon (Glucagen) 1 mg Q15M PRN IM DECREASED GLUCOSE; Start 09/10/18 at 20:30 Glucose (Glutose) 15 gm Q15M PRN BUCCAL DECREASED GLUCOSE; Start 09/10/18 at 20:30 Sodium Chloride 1,000 ml @ 80 mls/hr [id number] IV Last administered on 09/11/18at 14:02; Admin Dose 80 MLS/HR; Start 09/10/18 at 20:21 IV Flush (NS 3 ml) 3 ml PER PROTOCOL IV ; Start 09/10/18 at 20:30 Acetaminophen (Tylenol Tab) 650 mg Q6H PRN PO .PAIN 1-3 OR TEMP; Start 09/10/18 at 20:30 Docusate Sodium (Colace) 100 mg Q12H PRN PO .CONSTIPATION; Start 09/10/18 at 20:30 Bisacodyl (Dulcolax) 5 mg DAILY PRN PO .CONSTIPATION; Start 09/10/18 at 20:30 Diagnostic Test (Pha) (Accu-Chek) 1 ea 02 XX ; Start 09/11/18 at 02:00 Dutasteride (Avodart) 0.5 mg DAILY PO Last administered on 09/11/18at 08:28; Admin Dose 0.5 MG; Start 09/11/18 at 09:00 Insulin Aspart (Novolog Insulin Pen) 5 unit WITH MEALS SC Last administered on 09/11/18at 17:58; Admin Dose 5 UNIT; Start 09/11/18 at 11:50 Insulin Aspart (Novolog Insulin Pen) NOVOLOG *MILD* ALGORITHM WITH MEALS BEDTIME SC Last administered on 09/11/18at 12:02; Admin Dose 4 UNIT; Start 09/11/18 at 11:50 Fish Oil (Fish Oil) 2,000 mg BID PO Last administered on 09/11/18at 12:55; Admin Dose 2,000 MG; Start 09/11/18 at 12:00 Insulin Glargine (Lantus) 16 units DAILY@0800 SC Last administered on 09/11/18at 13:00; Admin Dose 16 UNITS; Start 09/11/18 at 12:00 Ferrous Sulfate (Ferrous Sulfate (Ec)) 325 mg DAILY PO Last administered on 09/11/18at 12:56; Admin Dose 325 MG; Start 09/11/18 at 12:00 Allergies: Coded Allergies: No Known Allergy (Unverified , 09/10/18) Past Surgical History Past Surgical Hx: appendectomy Social History Alcohol Use: none Smoking Status: Never smoker Drug Use: none Exam/Review of Systems Exam Vitals Vital Signs Date Temp Pulse Resp B/P (MAP) Pulse Ox O2 O2 Flow FiO2 Time Delivery Rate 09/11/18 98.5 82 18 141/75 97 15:05 (97) 09/10/18 Room Air 23:38 Intake and Output 09/10/18 09/10/18 09/11/18 1515:00 23:00 07:00 OutputOutput Total 1500 ml BalanceBalance -1500 ml Constitutional: alert, oriented Psych: no complaints Head: normocephalic Eyes: nl conjunctiva, nl sclera ENMT: nl external ears & nose Neck: supple Respiratory: normal air movement; No wheezing Cardiovascular: No jugular venous distention (JVD) Gastrointestinal: soft, surgical scars (From appendectomy); No hepatomegaly Genitourinary - Male: nl penis, nl scrotum, other (Rectal exam: Prostate is very large and soft); No CVA tenderness Musculoskeletal: nl extremities to inspection Extremities: normal pulses; No edema Neurological: nl mental status Skin: nl turgor Lymph: nl lymph nodes Results Result Diagram: 09/11/18 0559 09/11/18 0559 Results 24hrs Laboratory Tests Test 09/10/18 20:08 09/10/18 22:00 09/11/18 00:25 09/11/18 04:46 Urine Color STRAW Urine Clarity CLEAR Urine pH 6.0 Urine Specific 1.014 [place] Urine Ketones NEGATIVE Urine Nitrite NEGATIVE Urine Bilirubin NEGATIVE Urine Urobilinogen NEGATIVE Urine Leukocyte NEGATIVE Esterase Urine Hemoglobin NEGATIVE Urine Glucose 3+ H Urine Total Protein NEGATIVE Bedside Glucose 148 109 209 Test 09/11/18 05:56 09/11/18 05:59 09/11/18 08:27 09/11/18 11:51 Free Thyroxine 0.89 White Blood Count 8.6 # Red Blood Count 3.62 L Hemoglobin 10.6 L Hematocrit 31.3 L Mean Corpuscular 86.5 Volume Mean Corpuscular 29.3 Hemoglobin Mean Corpuscular 33.9 Hemoglobin Concent Red Cell 12.6 Distribution Width Platelet Count 176 Mean Platelet Volume 11.2 H Immature 0.500 H Granulocytes % Neutrophils % 68.7 Lymphocytes % 20.5 Monocytes % 6.6 Eosinophils % 3.2 Basophils % 0.5 Nucleated Red Blood 0.0 Cells % Immature 0.040 H Granulocytes # Neutrophils # 5.9 Lymphocytes # 1.8 Monocytes # 0.6 Eosinophils # 0.3 Basophils # 0.0 Nucleated Red Blood 0.0 Cells # Sodium Level 142 Potassium Level 4.1 Chloride Level 109 # Carbon Dioxide Level 26 Anion Gap 7 Blood Urea Nitrogen 26 H Creatinine 1.70 H Est Glomerular Filtrat Rate mL/min Glucose Level 202 # Hemoglobin A1c 12.9 H Calcium Level 8.6 Magnesium Level 1.6 L Iron Level 45 Total Iron Binding 242 Capacity Percent Iron 19 L Saturation Ferritin 247.0 Total Bilirubin 0.2 Direct Bilirubin 0.00 Indirect Bilirubin 0.2 Aspartate Amino 23 Transf (AST/SGOT) Alanine 24 Aminotransferase (AL T/SGPT) Alkaline Phosphatase 48 Total Protein 6.2 Albumin 3.3 Globulin 2.90 Albumin/Globulin 1.13 Ratio Triglycerides Level 251 H Cholesterol Level 188 LDL Cholesterol, 110 Calculated HDL Cholesterol 28 L Cholesterol/HDL 6.7 Ratio Thyroid Stimulating 5.770 H Hormone (TSH) Bedside Glucose 162 282 H Test 09/11/18 12:55 09/11/18 17:54 Bedside Glucose 228 H 137 Medications Medication Current Medications Miscellaneous Information 1 ea NOTE XX ; Start 09/10/18 at 20:30 Glucose (Glutose) 15 gm Q15M PRN PO DECREASED GLUCOSE; Start 09/10/18 at 20:30 Glucose (Glutose) 22.5 gm Q15M PRN PO DECREASED GLUCOSE; Start 09/10/18 at 20:30 Dextrose (D50w Syringe) 25 ml Q15M PRN IV DECREASED GLUCOSE; Start 09/10/18 at 20:30 Dextrose (D50w Syringe) 50 ml Q15M PRN IV DECREASED GLUCOSE; Start 09/10/18 at 20:30 Glucagon (Glucagen) 1 mg Q15M PRN IM DECREASED GLUCOSE; Start 09/10/18 at 20:30 Glucose (Glutose) 15 gm Q15M PRN BUCCAL DECREASED GLUCOSE; Start 09/10/18 at 20:30 Sodium Chloride 1,000 ml @ 80 mls/hr [id number] IV Last administered on 09/11/18at 14:02; Admin Dose 80 MLS/HR; Start 09/10/18 at 20:21 IV Flush (NS 3 ml) 3 ml PER PROTOCOL IV ; Start 09/10/18 at 20:30 Acetaminophen (Tylenol Tab) 650 mg Q6H PRN PO .PAIN 1-3 OR TEMP; Start 09/10/18 at 20:30 Docusate Sodium (Colace) 100 mg Q12H PRN PO .CONSTIPATION; Start 09/10/18 at 20:30 Bisacodyl (Dulcolax) 5 mg DAILY PRN PO .CONSTIPATION; Start 09/10/18 at 20:30 Diagnostic Test (Pha) (Accu-Chek) 1 ea 02 XX ; Start 09/11/18 at 02:00 Dutasteride (Avodart) 0.5 mg DAILY PO Last administered on 09/11/18at 08:28; Admin Dose 0.5 MG; Start 09/11/18 at 09:00 Insulin Aspart (Novolog Insulin Pen) 5 unit WITH MEALS SC Last administered on 09/11/18 17:58; Admin Dose 5 UNIT; Start 09/11/18 at 11:50 Insulin Aspart (Novolog Insulin Pen) NOVOLOG *MILD* ALGORITHM WITH MEALS BEDTIME SC Last administered on 09/11/18 12:02; Admin Dose 4 UNIT; Start 09/11/18 at 11:50 Fish Oil (Fish Oil) 2,000 mg BID PO Last administered on 09/11/18 12:55; Admin Dose 2,000 MG; Start 09/11/18 at 12:00 Insulin Glargine (Lantus) 16 units DAILY@0800 SC Last administered on 09/11/18 13:00; Admin Dose 16 UNITS; Start 09/11/18 at 12:00 Ferrous Sulfate (Ferrous Sulfate (Ec)) 325 mg DAILY PO Last administered on 09/11/18 12:56; Admin Dose 325 MG; Start 09/11/18 at 12:00 ARNOLD MEJIA MD Sep 11, 2018 19:25
[2018-09-11] MEDS: TAMSULOSIN (SR) 0.4 MG CAP PO SCH (20:07)
[2018-09-12] MEDS: ACCU-CHEK XX SCH (01:05)
[2018-09-12 04:00] VITALS: BP 98/62; PULSE 101; RESP 18
[2018-09-12] MEDS: SOD CHLORIDE 0.9% 1,000 ML IV SCH ×2 (04:22→20:44)
[2018-09-12 07:37] VITALS: BP 124/63; PULSE 87; RESP 16
[2018-09-12] MEDS ORDERED: INSULIN GLARGINE [LANTus] (100 UNITS/ML) SYG SC SCH (08:00)
[2018-09-12] MEDS: INSULIN GLARGINE [LANTus] (100 UNITS/ML) SYG SC SCH (08:12)
[2018-09-12] MEDS: INSULIN ASPART [NOVOLOG] 3 ML PEN SC SCH ×7 (08:12→19:58)
[2018-09-12] MEDS: TAMSULOSIN (SR) 0.4 MG CAP PO SCH ×2 (08:18→19:57)
[2018-09-12] MEDS: FISH OIL 1,000 MG CAP PO SCH ×2 (08:18→19:57)
[2018-09-12] MEDS: DUTASTERIDE 0.5 MG CAP PO SCH (08:18)
[2018-09-12] MEDS: FERROUS SULFATE (EC) 325 MG TAB PO SCH (08:18)
[2018-09-12 11:06] VITALS: BP 107/61; PULSE 85; RESP 17
--- NOTE | 2018-09-12 11:14 | PN ---
Date/Time of Note Date/Time of Note DATE: 09/12/18 TIME: 11:08 Assessment/Plan VTE Prophylaxis Risk score (from Nsg)>0 risk: 4 SCD applied (from Nsg): Yes Pharmacological prophylaxis: NA/contraindicated Pharm contraindication: low risk/ambulating Lines/Catheters IV Catheter Type (from Nrsg): Peripheral IV Urinary Cath still in place: Yes Reason Cath still needed: urinary retention Assessment/Plan Hospital Course SUBJECTIVE: no acute events. OBJECTIVE: Vital signs-see below PHYSICAL EXAM: Constitutional: Adequately built,not in acute distress. HEENT: Head atraumatic and normocephalic. Eyes: Extraocular muscles intact. Anicteric sclerae. Pupils equal bilaterally, reactive to light. NECK: Supple without lymph node. CHEST: Clear and good breath sounds equally. No wheezing. No rhonchi. HEART: S1, S2. Regular rate and rhythm. ABDOMEN: Soft/non tender with no rebound tenderness. Bowel sounds were present. EXTREMITIES: No cyanosis, clubbing or edema. NEUROLOGIC: Alert and oriented x3. No focal deficit. No sensory deficit. PSYCHOSOCIAL: No signs of depression. INTEGUMENTARY: No open wounds. ASSESSMENT AND PLAN:78 yo M w/DM2,not taking meds 2/2 insurance limitations, here w/generlized weakness found to have BS 660.. Uncontrolled hyperglycemia W/poorly managed DMII -sugars stabilized -cont,present basal/bolus regimen. -CM to assist with [employer] application so patient can be discharged on appropriate regimen -DM education requested 09/11 Enlarged prostate w/ bladder outlet obstruction -Patient does have LUTS-s/p Lucas placed. -PSA pending. -Being followed by urologist-recommended Flomax/avodart and void trial soon -CM to assist w/[facility] f/u information Acute kidney injury, likely postrenal -Improving after Lucas placed. -Continue to monitor. -nephrology following Chronic anemia -stablke -on oral iron replacement. Triglyceridemia -on fish oil supplementation subclinical hypothyroidism -outpt f/u DVT prophylaxis: SCDs Disposition: Continue current management. Urology recommended addition of Flomax with possible Lucas discontinuation soon with void trial. Case management to assist with Medi-[employer] application and provide patient with [facility] urology clinic follow-up.. Diabetic education. Patient was seen in collaboration with Dr. Rm. Result Diagram: 7/16/19 0650 09/12/18 0650 Results 24hrs Laboratory Tests Test 09/11/18 11:51 09/11/18 12:55 09/11/18 17:54 09/11/18 20:03 Bedside Glucose 282 H 228 H 137 144 Test 09/12/18 06:50 09/12/18 08:06 White Blood Count 9.8 Red Blood Count 3.69 L Hemoglobin 11.0 L Hematocrit 32.1 L Mean Corpuscular 87.0 Volume Mean Corpuscular 29.8 Hemoglobin Mean Corpuscular 34.3 Hemoglobin Concent Red Cell 12.5 Distribution Width Platelet Count 177 Mean Platelet Volume 10.7 H Immature 0.300 Granulocytes % Neutrophils % 61.3 Lymphocytes % 27.9 Monocytes % 6.8 Eosinophils % 3.1 Basophils % 0.6 Nucleated Red Blood 0.0 Cells % Immature 0.030 Granulocytes # Neutrophils # 6.0 Lymphocytes # 2.7 Monocytes # 0.7 Eosinophils # 0.3 Basophils # 0.1 Nucleated Red Blood 0.0 Cells # Sodium Level 140 Potassium Level 4.1 Chloride Level 106 Carbon Dioxide Level 26 Anion Gap 8 Blood Urea Nitrogen 22 H Creatinine 1.73 H Est Glomerular Filtrat Rate mL/min Glucose Level 159 Calcium Level 9.3 Bedside Glucose 169 Exam/Review of Systems Exam Vitals Vital Signs Date Temp Pulse Resp B/P (MAP) Pulse Ox O2 O2 Flow FiO2 Time Delivery Rate 09/12/18 98.9 85 17 107/61 97 11:06 (76) 09/10/18 Room Air 23:38 Intake and Output 09/11/18 09/11/18 09/12/18 1515:00 23:00 07:00 IntakeIntake Total 300 ml 700 ml 1480 ml OutputOutput Total 2500 ml 2750 ml BalanceBalance 300 ml -1800 ml -1270 ml Results Results 24hrs Laboratory Tests Test 09/11/18 11:51 09/11/18 12:55 09/11/18 17:54 09/11/18 20:03 Bedside Glucose 282 H 228 H 137 144 Test 09/12/18 06:50 09/12/18 08:06 White Blood Count 9.8 Red Blood Count 3.69 L Hemoglobin 11.0 L Hematocrit 32.1 L Mean Corpuscular 87.0 Volume Mean Corpuscular 29.8 Hemoglobin Mean Corpuscular 34.3 Hemoglobin Concent Red Cell 12.5 Distribution Width Platelet Count 177 Mean Platelet Volume 10.7 H Immature 0.300 Granulocytes % Neutrophils % 61.3 Lymphocytes % 27.9 Monocytes % 6.8 Eosinophils % 3.1 Basophils % 0.6 Nucleated Red Blood 0.0 Cells % Immature 0.030 Granulocytes # Neutrophils # 6.0 Lymphocytes # 2.7 Monocytes # 0.7 Eosinophils # 0.3 Basophils # 0.1 Nucleated Red Blood 0.0 Cells # Sodium Level 140 Potassium Level 4.1 Chloride Level 106 Carbon Dioxide Level 26 Anion Gap 8 Blood Urea Nitrogen 22 H Creatinine 1.73 H Est Glomerular Filtrat Rate mL/min Glucose Level 159 Calcium Level 9.3 Bedside Glucose 169 Medications Medication Current Medications Miscellaneous Information 1 ea NOTE XX ; Start 09/10/18 at 20:30 Glucose (Glutose) 15 gm Q15M PRN PO DECREASED GLUCOSE; Start 09/10/18 at 20:30 Glucose (Glutose) 22.5 gm Q15M PRN PO DECREASED GLUCOSE; Start 09/10/18 at 20:30 Dextrose (D50w Syringe) 25 ml Q15M PRN IV DECREASED GLUCOSE; Start 09/10/18 at 20:30 Dextrose (D50w Syringe) 50 ml Q15M PRN IV DECREASED GLUCOSE; Start 09/10/18 at 20:30 Glucagon (Glucagen) 1 mg Q15M PRN IM DECREASED GLUCOSE; Start 09/10/18 at 20:30 Glucose (Glutose) 15 gm Q15M PRN BUCCAL DECREASED GLUCOSE; Start 09/10/18 at 20:30 Sodium Chloride 1,000 ml @ 80 mls/hr [id number] IV Last administered on 09/12/18at 04:22; Admin Dose 80 MLS/HR; Start 09/10/18 at 20:21 IV Flush (NS 3 ml) 3 ml PER PROTOCOL IV ; Start 09/10/18 at 20:30 Acetaminophen (Tylenol Tab) 650 mg Q6H PRN PO .PAIN 1-3 OR TEMP; Start 09/10/18 at 20:30 Docusate Sodium (Colace) 100 mg Q12H PRN PO .CONSTIPATION; Start 09/10/18 at 20:30 Bisacodyl (Dulcolax) 5 mg DAILY PRN PO .CONSTIPATION; Start 09/10/18 at 20:30 Diagnostic Test (Pha) (Accu-Chek) 1 ea 02 XX ; Start 09/11/18 at 02:00 Dutasteride (Avodart) 0.5 mg DAILY PO Last administered on 09/12/18 08:18; Admin Dose 0.5 MG; Start 09/11/18 at 09:00 Insulin Aspart (Novolog Insulin Pen) 5 unit WITH MEALS SC Last administered on 09/12/18 08:12; Admin Dose 5 UNIT; Start 09/11/18 at 11:50 Insulin Aspart (Novolog Insulin Pen) NOVOLOG *MILD* ALGORITHM WITH MEALS BEDTIME SC Last administered on 09/12/18 08:12; Admin Dose 1 UNIT; Start 09/11/18 at 11:50 Fish Oil (Fish Oil) 2,000 mg BID PO Last administered on 09/12/18 08:18; Admin Dose 2,000 MG; Start 09/11/18 at 12:00 Insulin Glargine (Lantus) 16 units DAILY@0800 SC Last administered on 09/12/18 08:12; Admin Dose 16 UNITS; Start 09/11/18 at 12:00 Ferrous Sulfate (Ferrous Sulfate (Ec)) 325 mg DAILY PO Last administered on 09/12/18 08:18; Admin Dose 325 MG; Start 09/11/18 at 12:00 Tamsulosin HCl (Flomax) 0.4 mg BID PO Last administered on 09/12/18 08:18; Ad min Dose 0.4 MG; Start 09/11/18 at 21:00 TYRONE HARTMAN NP Sep 12, 2018 11:14
[2018-09-12 15:11] VITALS: BP 110/66; PULSE 95; RESP 17
--- NOTE | 2018-09-12 16:58 | CONS ---
Assessment/Plan Assessment/Plan Assessment/Plan (Daily) 1. acute kidney injury on possible CKD due to Bladder outlet obstruction from BPH 2. Bladder outlet obstruction 2/2 BPH with moderate Bilateral hydronephrosis 3. BPH 4. 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 Uncontrolled DM with BS in 600s 6. H/o HL Plan: Avodart 0.5 mg po daily, Flomax 0.4 mg pO BID , urology consulted on the case IVF NS at 80 cc/h, BUN/Cr improved to 22/1.73, other electrolytes stable plan is to d/c Winter catheter in AM Renal US showed CKD, Moderate hydronephrosis, - expecting it to improve after Winter Need better glycemic control will follow up Consultation Date/Type/Reason Admit Date/Time Sep 10, 2018 at 20:23 Initial Consult Date 09/11/18 Type of Consult NEPHROLOGY Requesting Provider: TYRONE HARTMAN NP Date/Time of Note DATE: 09/12/18 TIME: 16:58 Exam/Review of Systems Exam Vitals Vital Signs Date Temp Pulse Resp B/P (MAP) Pulse Ox O2 O2 Flow FiO2 Time Delivery Rate 09/12/18 98.4 95 17 110/66 96 15:11 (81) 09/10/18 Room Air 23:38 Intake and Output 09/11/18 09/11/18 09/12/18 1515:00 23:00 07:00 IntakeIntake Total 300 ml 700 ml 1480 ml OutputOutput Total 2500 ml 2750 ml BalanceBalance 300 ml -1800 ml -1270 ml Exam Constitutional: alert Respiratory: clear to auscultation, congested cough, diminished breath sounds Cardiovascular: regular rate and rhythm, nl pulses Gastrointestinal: soft, non-tender Musculoskeletal: nl extremities to inspection, muscle weakness Extremities: normal pulses, no edema, + winter catheter in place Neurological: [employer] II-XII intact, nl mental status, nl speech, nl strength Results Result Diagram: 09/12/18 0650 09/12/18 0650 Results 24hrs Laboratory Tests Test 09/11/18 17:54 09/11/18 20:03 09/12/18 06:50 09/12/18 08:06 Bedside Glucose 137 144 169 White Blood Count 9.8 Red Blood Count 3.69 L Hemoglobin 11.0 L Hematocrit 32.1 L Mean Corpuscular 87.0 Volume Mean Corpuscular 29.8 Hemoglobin Mean Corpuscular 34.3 Hemoglobin Concent Red Cell 12.5 Distribution Width Platelet Count 177 Mean Platelet Volume 10.7 H Immature 0.300 Granulocytes % Neutrophils % 61.3 Lymphocytes % 27.9 Monocytes % 6.8 Eosinophils % 3.1 Basophils % 0.6 Nucleated Red Blood 0.0 Cells % Immature 0.030 Granulocytes # Neutrophils # 6.0 Lymphocytes # 2.7 Monocytes # 0.7 Eosinophils # 0.3 Basophils # 0.1 Nucleated Red Blood 0.0 Cells # Sodium Level 140 Potassium Level 4.1 Chloride Level 106 Carbon Dioxide Level 26 Anion Gap 8 Blood Urea Nitrogen 22 H Creatinine 1.73 H Est Glomerular Filtrat Rate mL/min Glucose Level 159 Calcium Level 9.3 Test 09/12/18 12:13 Bedside Glucose 127 Medications Medication Current Medications Miscellaneous Information 1 ea NOTE XX ; Start 09/10/18 at 20:30 Glucose (Glutose) 15 gm Q15M PRN PO DECREASED GLUCOSE; Start 09/10/18 at 20:30 Glucose (Glutose) 22.5 gm Q15M PRN PO DECREASED GLUCOSE; Start 09/10/18 at 20:30 Dextrose (D50w Syringe) 25 ml Q15M PRN IV DECREASED GLUCOSE; Start 09/10/18 at 20:30 Dextrose (D50w Syringe) 50 ml Q15M PRN IV DECREASED GLUCOSE; Start 09/10/18 at 20:30 Glucagon (Glucagen) 1 mg Q15M PRN IM DECREASED GLUCOSE; Start 09/10/18 at 20:30 Glucose (Glutose) 15 gm Q15M PRN BUCCAL DECREASED GLUCOSE; Start 09/10/18 at 20:30 Sodium Chloride 1,000 ml @ 80 mls/hr [id number] IV Last administered on 09/12/18at 04:22; Admin Dose 80 MLS/HR; Start 09/10/18 at 20:21 IV Flush (NS 3 ml) 3 ml PER PROTOCOL IV ; Start 09/10/18 at 20:30 Acetaminophen (Tylenol Tab) 650 mg Q6H PRN PO .PAIN 1-3 OR TEMP; Start 09/10/18 at 20:30 Docusate Sodium (Colace) 100 mg Q12H PRN PO .CONSTIPATION; Start 09/10/18 at 20:30 Bisacodyl (Dulcolax) 5 mg DAILY PRN PO .CONSTIPATION; Start 09/10/18 at 20:30 Diagnostic Test (Pha) (Accu-Chek) 1 ea 02 XX ; Start 09/11/18 at 02:00 Dutasteride (Avodart) 0.5 mg DAILY PO Last administered on 09/12/18 08:18; Admin Dose 0.5 MG; Start 09/11/18 at 09:00 Insulin Aspart (Novolog Insulin Pen) 5 unit WITH MEALS SC Last administered on 09/12/18 12:17; Admin Dose 5 UNIT; Start 09/11/18 at 11:50 Insulin Aspart (Novolog Insulin Pen) NOVOLOG *MILD* ALGORITHM WITH MEALS BEDTIME SC Last administered on 09/12/18 08:12; Admin Dose 1 UNIT; Start 09/11/18 at 11:50 Fish Oil (Fish Oil) 2,000 mg BID PO Last administered on 09/12/18 08:18; Admin Dose 2,000 MG; Start 09/11/18 at 12:00 Insulin Glargine (Lantus) 16 units DAILY@0800 SC Last administered on 09/12/18 08:12; Admin Dose 16 UNITS; Start 09/11/18 at 12:00 Ferrous Sulfate (Ferrous Sulfate (Ec)) 325 mg DAILY PO Last administered on 09/12/18 08:18; Admin Dose 325 MG; Start 09/11/18 at 12:00 Tamsulosin HCl (Flomax) 0.4 mg BID PO Last administered on 09/12/18 08:18; Admin Dose 0.4 MG; Start 09/11/18 at 21:00 JACQUELINE TAYLOR MD Sep 12, 2018 16:58
[2018-09-12 19:35] VITALS: BP 132/66; PULSE 95; RESP 17
--- NOTE | 2018-09-12 21:04 | CONS ---
Consult Date/Type/Reason Admit Date/Time Sep 10, 2018 at 20:23 Initial Consult Date 09/11/18 Type of Consultation: Urology Reason for Consultation Urinary retention and enlarged prostate Requesting Provider: TYRONE HARTMAN NP Date/Time of Note DATE: 09/12/18 TIME: 21:03 Subjective No change in his condition. He is stable and has no complaints Objective Vitals Vital Signs Date Temp Pulse Resp B/P (MAP) Pulse Ox O2 O2 Flow FiO2 Time Delivery Rate 09/12/18 98.5 95 17 132/66 97 19:35 (88) 09/10/18 Room Air 23:38 Intake and Output 09/11/18 09/11/18 09/12/18 1515:00 23:00 07:00 IntakeIntake Total 300 ml 700 ml 1480 ml OutputOutput Total 2500 ml 2750 ml BalanceBalance 300 ml -1800 ml -1270 ml Exam Patient is comfortable and the Lucas catheter is draining clear urine Results/Medications Result Diagram: 09/12/18 0650 09/12/18 0650 Results 24 hrs Laboratory Tests Test 09/12/18 06:50 09/12/18 08:06 09/12/18 12:13 09/12/18 17:45 White Blood Count 9.8 Red Blood Count 3.69 L Hemoglobin 11.0 L Hematocrit 32.1 L Mean Corpuscular 87.0 Volume Mean Corpuscular 29.8 Hemoglobin Mean Corpuscular 34.3 Hemoglobin Concent Red Cell 12.5 Distribution Width Platelet Count 177 Mean Platelet Volume 10.7 H Immature 0.300 Granulocytes % Neutrophils % 61.3 Lymphocytes % 27.9 Monocytes % 6.8 Eosinophils % 3.1 Basophils % 0.6 Nucleated Red Blood 0.0 Cells % Immature 0.030 Granulocytes # Neutrophils # 6.0 Lymphocytes # 2.7 Monocytes # 0.7 Eosinophils # 0.3 Basophils # 0.1 Nucleated Red Blood 0.0 Cells # Sodium Level 140 Potassium Level 4.1 Chloride Level 106 Carbon Dioxide Level 26 Anion Gap 8 Blood Urea Nitrogen 22 H Creatinine 1.73 H Est Glomerular Filtrat Rate mL/min Glucose Level 159 Calcium Level 9.3 Bedside Glucose 169 127 147 Test 09/12/18 19:56 Bedside Glucose 127 Medications Current Medications Miscellaneous Information 1 ea NOTE XX ; Start 09/10/18 at 20:30 Glucose (Glutose) 15 gm Q15M PRN PO DECREASED GLUCOSE; Start 09/10/18 at 20:30 Glucose (Glutose) 22.5 gm Q15M PRN PO DECREASED GLUCOSE; Start 09/10/18 at 20:30 Dextrose (D50w Syringe) 25 ml Q15M PRN IV DECREASED GLUCOSE; Start 09/10/18 at 20:30 Dextrose (D50w Syringe) 50 ml Q15M PRN IV DECREASED GLUCOSE; Start 09/10/18 at 20:30 Glucagon (Glucagen) 1 mg Q15M PRN IM DECREASED GLUCOSE; Start 09/10/18 at 20:30 Glucose (Glutose) 15 gm Q15M PRN BUCCAL DECREASED GLUCOSE; Start 09/10/18 at 20:30 Sodium Chloride 1,000 ml @ 80 mls/hr [id number] IV Last administered on 09/12/18at 20:44; Admin Dose 80 MLS/HR; Start 09/10/18 at 20:21 IV Flush (NS 3 ml) 3 ml PER PROTOCOL IV ; Start 09/10/18 at 20:30 Acetaminophen (Tylenol Tab) 650 mg Q6H PRN PO .PAIN 1-3 OR TEMP; Start 09/10/18 at 20:30 Docusate Sodium (Colace) 100 mg Q12H PRN PO .CONSTIPATION; Start 09/10/18 at 20:30 Bisacodyl (Dulcolax) 5 mg DAILY PRN PO .CONSTIPATION; Start 09/10/18 at 20:30 Diagnostic Test (Pha) (Accu-Chek) 1 ea 02 XX ; Start 09/11/18 at 02:00 Dutasteride (Avodart) 0.5 mg DAILY PO Last administered on 09/12/18at 08:18; Admin Dose 0.5 MG; Start 09/11/18 at 09:00 Insulin Aspart (Novolog Insulin Pen) 5 unit WITH MEALS SC Last administered on 09/12/18at 17:49; Admin Dose 5 UNIT; Start 09/11/18 at 11:50 Insulin Aspart (Novolog Insulin Pen) NOVOLOG *MILD* ALGORITHM WITH MEALS BEDTI ME SC Last administered on 09/12/18at 17:49; Admin Dose 1 UNIT; Start 09/11/18 at 11:50 Fish Oil (Fish Oil) 2,000 mg BID PO Last administered on 09/12/18 19:57; Admin Dose 2,000 MG; Start 09/11/18 at 12:00 Insulin Glargine (Lantus) 16 units DAILY@0800 SC Last administered on 09/12/18 08:12; Admin Dose 16 UNITS; Start 09/11/18 at 12:00 Ferrous Sulfate (Ferrous Sulfate (Ec)) 325 mg DAILY PO Last administered on 09/12/18 08:18; Admin Dose 325 MG; Start 09/11/18 at 12:00 Tamsulosin HCl (Flomax) 0.4 mg BID PO Last administered on 09/12/18 19:57; Admin Dose 0.4 MG; Start 09/11/18 at 21:00 Assessment/Plan Hospital Course (Demo Recall) 78-year-old male with a past medical history of diabetes mellitus presented to the emergency department complaining of generalized weakness. Patient reported generalized weakness and dizziness that is been going on for a few months. The patient neighbor checked his blood sugar for him and was very high. The patient came into the emergency room and states that he has not taken his diabetes medication for 4 to 6 months. He underwent a CT scan of the abdomen and pelvis and that showed urinary retention with the bladder distended up to the umbilicus. A Lucas catheter was inserted and a urological consultation was requested. Patient states that he does have nocturia 3-4 times and during the day he voids about 6 times. He does have terminal dysuria. He denies any history of gross hematuria. He does have a slow urinary stream and he feels he does not empty his bladder well. He has had diabetes since 2001 in addition to hypertension and dyslipidemia. Presently the patient is awake and alert and comfortable. His Lucas catheter is draining clear urine. The external genitalia are normal. The bladder is not distended. He does have a very large median lobe of the prostate that is protruding into the bladder on the ultrasound and the CT scan. Recommendation is to start him on tamsulosin 1 capsule twice a day. Discontinue the Lucas catheter at 6 AM September 13, 2018. Check his voiding and do bladder scan for postvoid residual after each voiding. If he cannot urinate and keeps a high postvoid residual or a bladder scan showing 500 mL or more then we will insert another Lucsa catheter and discharge home with the Lucas catheter and then he has to follow up with [facility]. ARNOLD MEJIA MD Sep 12, 2018 21:04
[2018-09-12 23:35] VITALS: BP 129/74; PULSE 98; RESP 17
[2018-09-13] MEDS: ACCU-CHEK XX SCH (01:25)
[2018-09-13 03:35] VITALS: BP 118/67; PULSE 92; RESP 17
[2018-09-13] MEDS: ACETAMINOPHEN 325 MG TAB PO PRN ×2 (06:15→23:34)
[2018-09-13 07:45] VITALS: BP 119/69; PULSE 88; RESP 18
[2018-09-13] MEDS: SOD CHLORIDE 0.9% 1,000 ML IV SCH ×2 (08:18→16:37)
[2018-09-13] MEDS: DUTASTERIDE 0.5 MG CAP PO SCH (08:18)
[2018-09-13] MEDS: TAMSULOSIN (SR) 0.4 MG CAP PO SCH ×2 (08:18→20:10)
[2018-09-13] MEDS: FERROUS SULFATE (EC) 325 MG TAB PO SCH (08:19)
[2018-09-13] MEDS: FISH OIL 1,000 MG CAP PO SCH ×2 (08:19→20:10)
[2018-09-13] MEDS: INSULIN GLARGINE [LANTus] (100 UNITS/ML) SYG SC SCH (08:30)
[2018-09-13] MEDS: INSULIN ASPART [NOVOLOG] 3 ML PEN SC SCH ×7 (08:30→20:13)
--- NOTE | 2018-09-13 11:42 | PN ---
Date/Time of Note Date/Time of Note DATE: 09/13/18 TIME: 11:34 Assessment/Plan VTE Prophylaxis Risk score (from Nsg)>0 risk: 3 SCD applied (from Nsg): Yes Pharmacological prophylaxis: NA/contraindicated Pharm contraindication: low risk/ambulating Lines/Catheters IV Catheter Type (from Nrsg): Peripheral IV Urinary Cath still in place: No Assessment/Plan Hospital Course SUBJECTIVE: no acute events. OBJECTIVE: Vital signs-see below PHYSICAL EXAM: Constitutional: Adequately built,not in acute distress. HEENT: Head atraumatic and normocephalic. Eyes: Extraocular muscles intact. Anicteric sclerae. Pupils equal bilaterally, reactive to light. NECK: Supple without lymph node. CHEST: Clear and good breath sounds equally. No wheezing. No rhonchi. HEART: S1, S2. Regular rate and rhythm. ABDOMEN: Soft/non tender with no rebound tenderness. Bowel sounds were present. EXTREMITIES: No cyanosis, clubbing or edema. NEUROLOGIC: Alert and oriented x3. No focal deficit. No sensory deficit. PSYCHOSOCIAL: No signs of depression. INTEGUMENTARY: No open wounds. ASSESSMENT AND PLAN:78 yo M w/DM2,not taking meds 2/2 insurance limitations, here w/generlized weakness found to have BS 660.. Uncontrolled hyperglycemia W/poorly managed DMII -sugars stabilized -cont.basal/bolus regimen. -CM to assist with Medi-Tor application so patient can be discharged on appropri ate regimen -DM education Enlarged prostate w/ bladder outlet obstruction -s/p winter dc->no further LUTs -PSA noted -Being followed by urologist-recommended Flomax/avodart -CM to assist w[facility] f/u information Acute kidney injury on CKD, likely postrenal -Improving after Winter placed. -Give additional 500 ns today -Continue to monitor. -nephrology following Chronic anemia -stable -on oral iron replacement. Triglyceridemia -on fish oil supplementation subclinical hypothyroidism -outpt f/u DVT prophylaxis: SCDs Disposition: Cs/p winter dc. Patient voided multiple times without any discomfort. Continue Avodart and Flomax regimen. Continue diabetes management. Case management to assist with Medi-Tor process. Once Medi-Tor is established, DC planning on current medications with oral diabetes agents preferably glipizide and if creatinine allows, metformin. Patient to follow-up with [facility] urology team. Patient was seen in collaboration with Dr. Rm. Result Diagram: 09/12/18 0650 09/12/18 0650 Results 24hrs Laboratory Tests Test 09/12/18 12:13 09/12/18 17:45 09/12/18 19:56 09/13/18 06:37 Bedside Glucose 127 147 127 Prostate Specific 4.3 H Antigen Test 09/13/18 08:17 Bedside Glucose 224 H Exam/Review of Systems Exam Vitals Vital Signs Date Temp Pulse Resp B/P (MAP) Pulse Ox O2 O2 Flow FiO2 Time Delivery Rate 09/13/18 98.4 88 18 119/69 96 07:45 (86) 09/10/18 Room Air 23:38 Intake and Output 09/12/18 09/12/18 09/13/18 1515:00 23:00 07:00 IntakeIntake Total 533 ml 870 ml 880 ml OutputOutput Total 550 ml 1700 ml 2900 ml BalanceBalance -17 ml -830 ml -2020 ml Results Results 24hrs Laboratory Tests Test 09/12/18 12:13 09/12/18 17:45 09/12/18 19:56 09/13/18 06:37 Bedside Glucose 127 147 127 Prostate Specific 4.3 H Antigen Test 09/13/18 08:17 Bedside Glucose 224 H Medications Medication Current Medications Miscellaneous Information 1 ea NOTE XX ; Start 09/10/18 at 20:30 Glucose (Glutose) 15 gm Q15M PRN PO DECREASED GLUCOSE; Start 09/10/18 at 20:30 Glucose (Glutose) 22.5 gm Q15M PRN PO DECREASED GLUCOSE; Start 09/10/18 at 20:30 Dextrose (D50w Syringe) 25 ml Q15M PRN IV DECREASED GLUCOSE; Start 09/10/18 at 20:30 Dextrose (D50w Syringe) 50 ml Q15M PRN IV DECREASED GLUCOSE; Start 09/10/18 at 20:30 Glucagon (Glucagen) 1 mg Q15M PRN IM DECREASED GLUCOSE; Start 09/10/18 at 20:30 Glucose (Glutose) 15 gm Q15M PRN BUCCAL DECREASED GLUCOSE; Start 09/10/18 at 20:30 Sodium Chloride 1,000 ml @ 80 mls/hr [id number] IV Last administered on 09/13/18 08:18; Admin Dose 80 MLS/HR; Start 09/10/18 at 20:21 IV Flush (NS 3 ml) 3 ml PER PROTOCOL IV ; Start 09/10/18 at 20:30 Acetaminophen (Tylenol Tab) 650 mg Q6H PRN PO .PAIN 1-3 OR TEMP Last administered on 09/13/18 06:15; Admin Dose 650 MG; Start 09/10/18 at 20:30 Docusate Sodium (Colace) 100 mg Q12H PRN PO .CONSTIPATION; Start 09/10/18 at 20:30 Bisacodyl (Dulcolax) 5 mg DAILY PRN PO .CONSTIPATION; Start 09/10/18 at 20:30 Diagnostic Test (Pha) (Accu-Chek) 1 ea 02 XX ; Start 09/11/18 at 02:00 Dutasteride (Avodart) 0.5 mg DAILY PO Last administered on 09/13/18 08:18; Admin Dose 0.5 MG; Start 09/11/18 at 09:00 Insulin Aspart (Novolog Insulin Pen) 5 unit WITH MEALS SC Last administered on 09/13/18 08:30; Admin Dose 5 UNIT; Start 09/11/18 at 11:50 Insulin Aspart (Novolog Insulin Pen) NOVOLOG *MILD* ALGORITHM WITH MEALS BEDTIME SC Last administered on 09/13/18 08:30; Admin Dose 3 UNIT; Start 09/11/18 at 11:50 Fish Oil (Fish Oil) 2,000 mg BID PO Last administered on 09/13/18 08:19; Admin Dose 2,000 MG; Start 09/11/18 at 12:00 Insulin Glargine (Lantus) 16 units DAILY@0800 SC Last administered on 09/13/18 08:30; Admin Dose 16 UNITS; Start 09/11/18 at 12:00 Ferrous Sulfate (Ferrous Sulfate (Ec)) 325 mg DAILY PO Last administered on 09/13/18 08:19; Admin Dose 325 MG; Start 09/11/18 at 12:00 Tamsulosin HCl (Flomax) 0.4 mg BID PO Last administered on 09/13/18 08:18; Admin Dose 0.4 MG; Start 09/11/18 at 21:00 TYRONE HARTMAN NP Sep 13, 2018 11:42
[2018-09-13 11:43] VITALS: BP 114/61; PULSE 82; RESP 16
[2018-09-13] MEDS ORDERED: SOD CHLORIDE 0.9% 500 ML IV ONE (12:00)
--- NOTE | 2018-09-13 13:21 | CONS ---
Assessment/Plan Assessment/Plan Assessment/Plan (Daily) 1. acute kidney injury on possible CKD due to Bladder outlet obstruction from BPH 2. Bladder outlet obstruction 2/2 BPH with moderate Bilateral hydronephrosis 3. BPH 4. 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 Uncontrolled DM with BS in 600s 6. H/o HL Plan: Avodart 0.5 mg po daily, Flomax 0.4 mg pO BID , urology following IVF NS at 80 cc/h, BUN/Cr improved to 22/1.73, other electrolytes stable - no Labs today Renal US showed CKD, Moderate hydronephrosis, - expecting it to improve after Winter will follow up Consultation Date/Type/Reason Admit Date/Time Sep 10, 2018 at 20:23 Initial Consult Date 09/11/18 Type of Consult NEPHROLOGY Requesting Provider: TYRONE HARTMAN NP Date/Time of Note DATE: 09/13/18 TIME: 13:21 Exam/Review of Systems Exam Vitals Vital Signs Date Temp Pulse Resp B/P (MAP) Pulse Ox O2 O2 Flow FiO2 Time Delivery Rate 09/13/18 98.0 82 16 114/61 95 11:43 (78) 09/10/18 Room Air 23:38 Intake and Output 09/12/18 09/12/18 09/13/18 1515:00 23:00 07:00 IntakeIntake Total 533 ml 870 ml 880 ml OutputOutput Total 550 ml 1700 ml 2900 ml BalanceBalance -17 ml -830 ml -2020 ml Exam Constitutional: alert Respiratory: clear to auscultation, congested cough, diminished breath sounds Cardiovascular: regular rate and rhythm, nl pulses Gastrointestinal: soft, non-tender Musculoskeletal: nl extremities to inspection, muscle weakness Extremities: normal pulses, no edema, + winter catheter in place Neurological: Non focal Results Result Diagram: 09/12/18 0650 09/12/18 0650 Results 24hrs Laboratory Tests Test 09/12/18 17:45 09/12/18 19:56 09/13/18 06:37 09/13/18 08:17 Bedside Glucose 147 127 224 H Prostate Specific 4.3 H Antigen Test 09/13/18 11:54 Bedside Glucose 171 Medications Medication Current Medications Miscellaneous Information 1 ea NOTE XX ; Start 09/10/18 at 20:30 Glucose (Glutose) 15 gm Q15M PRN PO DECREASED GLUCOSE; Start 09/10/18 at 20:30 Glucose (Glutose) 22.5 gm Q15M PRN PO DECREASED GLUCOSE; Start 09/10/18 at 20:30 Dextrose (D50w Syringe) 25 ml Q15M PRN IV DECREASED GLUCOSE; Start 09/10/18 at 20:30 Dextrose (D50w Syringe) 50 ml Q15M PRN IV DECREASED GLUCOSE; Start 09/10/18 at 20:30 Glucagon (Glucagen) 1 mg Q15M PRN IM DECREASED GLUCOSE; Start 09/10/18 at 20:30 Glucose (Glutose) 15 gm Q15M PRN BUCCAL DECREASED GLUCOSE; Start 09/10/18 at 20:30 Sodium Chloride 1,000 ml @ 80 mls/hr [id number] IV Last administered on 09/13/18at 08:18; Admin Dose 80 MLS/HR; Start 09/10/18 at 20:21 IV Flush (NS 3 ml) 3 ml PER PROTOCOL IV ; Start 09/10/18 at 20:30 Acetaminophen (Tylenol Tab) 650 mg Q6H PRN PO .PAIN 1-3 OR TEMP Last administered on 09/13/18at 06:15; Admin Dose 650 MG; Start 09/10/18 at 20:30 Docusate Sodium (Colace) 100 mg Q12H PRN PO .CONSTIPATION; Start 09/10/18 at 20:30 Bisacodyl (Dulcolax) 5 mg DAILY PRN PO .CONSTIPATION; Start 09/10/18 at 20:30 Diagnostic Test (Pha) (Accu-Chek) 1 ea 02 XX ; Start 09/11/18 at 02:00 Dutasteride (Avodart) 0.5 mg DAILY PO Last administered on 09/13/18at 08:18; Admin Dose 0.5 MG; Start 09/11/18 at 09:00 Insulin Aspart (Novolog Insulin Pen) 5 unit WITH MEALS SC Last administered on 09/13/18at 12:08; Admin Dose 5 UNIT; Start 09/11/18 at 11:50 Insulin Aspart (Novolog Insulin Pen) NOVOLOG *MILD* ALGORITHM WITH MEALS BEDTIME SC Last administered on 09/13/18at 12:09; Admin Dose 1 UNIT; Start 09/11/18 at 11:50 Fish Oil (Fish Oil) 2,000 mg BID PO Last administered on 09/13/18 08:19; Admin Dose 2,000 MG; Start 09/11/18 at 12:00 Insulin Glargine (Lantus) 16 units DAILY@0800 SC Last administered on 09/13/18at 08:30; Admin Dose 16 UNITS; Start 09/11/18 at 12:00 Ferrous Sulfate (Ferrous Sulfate (Ec)) 325 mg DAILY PO Last administered on 09/13/18 08:19; Admin Dose 325 MG; Start 09/11/18 at 12:00 Tamsulosin HCl (Flomax) 0.4 mg BID PO Last administered on 09/13/18 08:18; Admin Dose 0.4 MG; Start 09/11/18 at 21:00 JACQUELINE TAYLOR MD Sep 13, 2018 13:21
[2018-09-13 15:47] VITALS: BP 128/66; PULSE 77; RESP 16
[2018-09-13 20:00] VITALS: BP 148/69; PULSE 86; RESP 18
[2018-09-14] VITALS (7 sets, daily range): BP systolic 118–151; BP diastolic 64–75; PULSE 75–94; RESP 16–18
[2018-09-14] MEDS: ACCU-CHEK XX SCH (02:00)
[2018-09-14] MEDS: SOD CHLORIDE 0.9% 1,000 ML IV SCH (04:04)
[2018-09-14] MEDS: FERROUS SULFATE (EC) 325 MG TAB PO SCH (08:21)
[2018-09-14] MEDS: TAMSULOSIN (SR) 0.4 MG CAP PO SCH ×2 (08:21→20:19)
[2018-09-14] MEDS: DUTASTERIDE 0.5 MG CAP PO SCH (08:21)
[2018-09-14] MEDS: FISH OIL 1,000 MG CAP PO SCH ×2 (08:21→20:19)
[2018-09-14] MEDS: INSULIN ASPART [NOVOLOG] 3 ML PEN SC SCH ×7 (08:40→20:19)
[2018-09-14] MEDS: INSULIN GLARGINE [LANTus] (100 UNITS/ML) SYG SC SCH (08:41)
--- NOTE | 2018-09-14 11:47 | PN ---
Date/Time of Note Date/Time of Note DATE: 09/14/18 TIME: 11:45 Assessment/Plan VTE Prophylaxis Risk score (from Nsg)>0 risk: 3 SCD applied (from Nsg): Yes Pharmacological prophylaxis: NA/contraindicated Pharm contraindication: low risk/ambulating Lines/Catheters IV Catheter Type (from Nrsg): Peripheral IV Urinary Cath still in place: No Assessment/Plan Hospital Course SUBJECTIVE: no acute events. OBJECTIVE: Vital signs-see below PHYSICAL EXAM: Constitutional: Adequately built,not in acute distress. HEENT: Head atraumatic and normocephalic. Eyes: Extraocular muscles intact. Anicteric sclerae. Pupils equal bilaterally, reactive to light. NECK: Supple without lymph node. CHEST: Clear and good breath sounds equally. No wheezing. No rhonchi. HEART: S1, S2. Regular rate and rhythm. ABDOMEN: Soft/non tender with no rebound tenderness. Bowel sounds were present. EXTREMITIES: No cyanosis, clubbing or edema. NEUROLOGIC: Alert and oriented x3. No focal deficit. No sensory deficit. PSYCHOSOCIAL: No signs of depression. INTEGUMENTARY: No open wounds. ASSESSMENT AND PLAN:78 yo M w/DM2,not taking meds 2/2 insurance limitations, here w/generlized weakness found to have BS 660.. Uncontrolled hyperglycemia W/poorly managed DMII -cont.basal/bolus regimen-titrate per readings. -Plan is to send patient on oral regimen with combination metformin plus glipi zide -DM education Enlarged prostate w/ bladder outlet obstruction -Lucas was DC'd, but again noted with urinary retention this morning requiring Lucas reinsertion. -PSA noted -Continue with Flomax and Avodart. Follow-up urology recommendations - to assist w/[facility] urology clinic f/u information Acute kidney injury on CKD, likely postrenal -Improved -Continue to monitor. -nephrology following Chronic anemia -stable -on oral iron replacement. Triglyceridemia -on fish oil supplementation subclinical hypothyroidism -outpt f/u DM Neuropathy -Gabapentin DVT prophylaxis: SCDs Disposition: Patient required Lucas reinsertion this morning. At this time, await for urology recommendation. Patient was seen in collaboration with Dr. Rm. Result Diagram: 09/12/18 0650 09/14/18 0607 Results 24hrs Laboratory Tests Test 09/13/18 11:54 09/13/18 17:21 09/13/18 20:08 09/14/18 06:07 Bedside Glucose 171 109 216 Sodium Level 141 Potassium Level 4.0 Chloride Level 107 Carbon Dioxide Level 26 Anion Gap 8 Blood Urea Nitrogen 27 H Creatinine 1.51 H Est Glomerular Filtrat Rate mL/min Glucose Level 195 Calcium Level 9.1 Test 09/14/18 08:21 09/14/18 11:28 Bedside Glucose 171 216 Exam/Review of Systems Exam Vitals Vital Signs Date Temp Pulse Resp B/P (MAP) Pulse Ox O2 O2 Flow FiO2 Time Delivery Rate 09/14/18 98.7 87 16 130/65 96 11:13 (86) 09/10/18 Room Air 23:38 Intake and Output 09/13/18 09/13/18 09/14/18 1515:00 23:00 07:00 IntakeIntake Total 2190 ml 1240 ml OutputOutput Total 300 ml 3650 ml 2800 ml BalanceBalance -300 ml -1460 ml -1560 ml Results Results 24hrs Laboratory Tests Test 09/13/18 11:54 09/13/18 17:21 09/13/18 20:08 09/14/18 06:07 Bedside Glucose 171 109 216 Sodium Level 141 Potassium Level 4.0 Chloride Level 107 Carbon Dioxide Level 26 Anion Gap 8 Blood Urea Nitrogen 27 H Creatinine 1.51 H Est Glomerular Filtrat Rate mL/min Glucose Level 195 Calcium Level 9.1 Test 09/14/18 08:21 09/14/18 11:28 Bedside Glucose 171 216 Medications Medication Current Medications Miscellaneous Information 1 ea NOTE XX ; Start 09/10/18 at 20:30 Glucose (Glutose) 15 gm Q15M PRN PO DECREASED GLUCOSE; Start 09/10/18 at 20:30 Glucose (Glutose) 22.5 gm Q15M PRN PO DECREASED GLUCOSE; Start 09/10/18 at 20:30 Dextrose (D50w Syringe) 25 ml Q15M PRN IV DECREASED GLUCOSE; Start 09/10/18 at 20:30 Dextrose (D50w Syringe) 50 ml Q15M PRN IV DECREASED GLUCOSE; Start 09/10/18 at 20:30 Glucagon (Glucagen) 1 mg Q15M PRN IM DECREASED GLUCOSE; Start 09/10/18 at 20:30 Glucose (Glutose) 15 gm Q15M PRN BUCCAL DECREASED GLUCOSE; Start 09/10/18 at 20:30 Sodium Chloride 1,000 ml @ 80 mls/hr [id number] IV Last administered on 09/14/18at 04:04; Admin Dose 80 MLS/HR; Start 09/10/18 at 20:21 IV Flush (NS 3 ml) 3 ml PER PROTOCOL IV ; Start 09/10/18 at 20:30 Acetaminophen (Tylenol Tab) 650 mg Q6H PRN PO .PAIN 1-3 OR TEMP Last administered on 09/13/18at 23:34; Admin Dose 650 MG; Start 09/10/18 at 20:30 Docusate Sodium (Colace) 100 mg Q12H PRN PO .CONSTIPATION; Start 09/10/18 at 20:30 Bisacodyl (Dulcolax) 5 mg DAILY PRN PO .CONSTIPATION; Start 09/10/18 at 20:30 Diagnostic Test (Pha) (Accu-Chek) 1 ea 02 XX ; Start 09/11/18 at 02:00 Dutasteride (Avodart) 0.5 mg DAILY PO Last administered on 09/14/18 08:21; Admin Dose 0.5 MG; Start 09/11/18 at 09:00 Insulin Aspart (Novolog Insulin Pen) 5 unit WITH MEALS SC Last administered on 09/14/18 08:41; Admin Dose 5 UNIT; Start 09/11/18 at 11:50 Insulin Aspart (Novolog Insulin Pen) NOVOLOG *MILD* ALGORITHM WITH MEALS BEDTIME SC Last administered on 09/14/18 08:40; Admin Dose 1 UNIT; Start 09/11/18 at 11:50 Fish Oil (Fish Oil) 2,000 mg BID PO Last administered on 09/14/18 08:21; Admin Dose 2,000 MG; Start 09/11/18 at 12:00 Insulin Glargine (Lantus) 16 units DAILY@0800 SC Last administered on 09/14/18 08:41; Admin Dose 16 UNITS; Start 09/11/18 at 12:00 Ferrous Sulfate (Ferrous Sulfate (Ec)) 325 mg DAILY PO Last administered on 09/14/18 08:21; Admin Dose 325 MG; Start 09/11/18 at 12:00 Tamsulosin HCl (Flomax) 0.4 mg BID PO Last administered on 09/14/18at 08:21; Admin Dose 0.4 MG; Start 09/11/18 at 21:00 TYRONE HARTMAN NP Sep 14, 2018 11:47
--- NOTE | 2018-09-14 14:30 | CONS ---
Assessment/Plan Assessment/Plan Assessment/Plan (Daily) Assessment/Plan (Daily) 1. acute kidney injury on possible CKD due to Bladder outlet obstruction from BPH 2. Bladder outlet obstruction 2/2 BPH with moderate Bilateral hydronephrosis 3. BPH 4. 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 Uncontrolled DM with BS in 600s 6. H/o HL Plan: pt had a urinary retention after foely d/master glazier, -BUN/Cr improved to 27/1.51, other electrolytes stable, D/c IVF now Avodart 0.5 mg po daily, Flomax 0.4 mg pO BID , urology following Renal US showed CKD, Moderate hydronephrosis, will follow up Consultation Date/Type/Reason Admit Date/Time Sep 10, 2018 at 20:23 Initial Consult Date 09/11/18 Type of Consult NEPHROLOGY Requesting Provider: TYRONE HARTMAN NP Date/Time of Note DATE: 09/14/18 TIME: 14:30 24 HR Interval Summary Free Text/Dictation pt had a urinary retention after foely d/master glazier, BUN/cr slightly better, Bp stable Exam/Review of Systems Exam Vitals Vital Signs Date Temp Pulse Resp B/P (MAP) Pulse Ox O2 O2 Flow FiO2 Time Delivery Rate 09/14/18 98.7 87 16 130/65 96 11:13 (86) 09/10/18 Room Air 23:38 Intake and Output 09/13/18 09/13/18 09/14/18 1515:00 23:00 07:00 IntakeIntake Total 2190 ml 1240 ml OutputOutput Total 300 ml 3650 ml 2800 ml BalanceBalance -300 ml -1460 ml -1560 ml Exam Constitutional: alert Respiratory: clear to auscultation, congested cough, diminished breath sounds Cardiovascular: regular rate and rhythm, nl pulses Gastrointestinal: soft, non-tender Musculoskeletal: nl extremities to inspection, muscle weakness Extremities: normal pulses, no edema, Neurological: Non focal Results Result Diagram: 09/12/18 0650 09/14/18 0607 Results 24hrs Laboratory Tests Test 09/13/18 17:21 09/13/18 20:08 09/14/18 06:07 09/14/18 08:21 Bedside Glucose 109 216 171 Sodium Level 141 Potassium Level 4.0 Chloride Level 107 Carbon Dioxide Level 26 Anion Gap 8 Blood Urea Nitrogen 27 H Creatinine 1.51 H Est Glomerular Filtrat Rate mL/min Glucose Level 195 Calcium Level 9.1 Test 09/14/18 11:28 Bedside Glucose 216 Medications Medication Current Medications Miscellaneous Information 1 ea NOTE XX ; Start 09/10/18 at 20:30 Glucose (Glutose) 15 gm Q15M PRN PO DECREASED GLUCOSE; Start 09/10/18 at 20:30 Glucose (Glutose) 22.5 gm Q15M PRN PO DECREASED GLUCOSE; Start 09/10/18 at 20:30 Dextrose (D50w Syringe) 25 ml Q15M PRN IV DECREASED GLUCOSE; Start 09/10/18 at 20:30 Dextrose (D50w Syringe) 50 ml Q15M PRN IV DECREASED GLUCOSE; Start 09/10/18 at 20:30 Glucagon (Glucagen) 1 mg Q15M PRN IM DECREASED GLUCOSE; Start 09/10/18 at 20:30 Glucose (Glutose) 15 gm Q15M PRN BUCCAL DECREASED GLUCOSE; Start 09/10/18 at 20:30 Sodium Chloride 1,000 ml @ 80 mls/hr [id number] IV Last administered on 09/14/18at 04:04; Admin Dose 80 MLS/HR; Start 09/10/18 at 20:21 IV Flush (NS 3 ml) 3 ml PER PROTOCOL IV ; Start 09/10/18 at 20:30 Acetaminophen (Tylenol Tab) 650 mg Q6H PRN PO .PAIN 1-3 OR TEMP Last admini stered on 09/13/18at 23:34; Admin Dose 650 MG; Start 09/10/18 at 20:30 Docusate Sodium (Colace) 100 mg Q12H PRN PO .CONSTIPATION; Start 09/10/18 at 20:30 Bisacodyl (Dulcolax) 5 mg DAILY PRN PO .CONSTIPATION; Start 09/10/18 at 20:30 Diagnostic Test (Pha) (Accu-Chek) 1 ea 02 XX ; Start 09/11/18 at 02:00 Dutasteride (Avodart) 0.5 mg DAILY PO Last administered on 09/14/18at 08:21; Admin Dose 0.5 MG; Start 09/11/18 at 09:00 Insulin Aspart (Novolog Insulin Pen) NOVOLOG *MILD* ALGORITHM WITH MEALS BE DTIME SC Last administered on 7/18/19at 13:22; Admin Dose 2 UNIT; Start 09/11/18 at 11:50 Fish Oil (Fish Oil) 2,000 mg BID PO Last administered on 09/14/18 08:21; Admin Dose 2,000 MG; Start 09/11/18 at 12:00 Ferrous Sulfate (Ferrous Sulfate (Ec)) 325 mg DAILY PO Last administered on 09/14/18 08:21; Admin Dose 325 MG; Start 09/11/18 at 12:00 Tamsulosin HCl (Flomax) 0.4 mg BID PO Last administered on 09/14/18 08:21; Admin Dose 0.4 MG; Start 09/11/18 at 21:00 Insulin Aspart (Novolog Insulin Pen) 7 unit WITH MEALS SC Last administered on 09/14/18 13:22; Admin Dose 7 UNIT; Start 09/14/18 at 11:50 Insulin Glargine (Lantus) 20 units DAILY@0800 SC ; Start 09/15/18 at 08:00 JACQUELINE TAYLOR MD Sep 14, 2018 14:30
[2018-09-14] MEDS: ACETAMINOPHEN 325 MG TAB PO PRN (17:10)
[2018-09-14] MEDS: GABAPENTIN 100 MG CAP PO SCH (20:19)
[2018-09-15 01:54] VITALS: BP 128/73; PULSE 86; RESP 18
[2018-09-15] MEDS: ACCU-CHEK XX SCH (02:00)
[2018-09-15 08:00] VITALS: BP 128/65; PULSE 83; RESP 16
[2018-09-15] MEDS ORDERED: INSULIN GLARGINE [LANTus] (100 UNITS/ML) SYG SC SCH (08:00)
[2018-09-15] MEDS: ACETAMINOPHEN 325 MG TAB PO PRN (08:02)
--- NOTE | 2018-09-15 08:28 | CONS ---
Assessment/Plan Assessment/Plan Assessment/Plan (Daily) 1. acute kidney injury on possible CKD due to Bladder outlet obstruction from BPH 2. Bladder outlet obstruction 2/2 BPH with moderate Bilateral hydronephrosis 3. BPH 4. 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 Uncontrolled DM with BS in 600s 6. H/o HL Plan: , -BUN/Cr improved to 27/1.51, other electrolytes stable,no retention issues now, Ok to d/c home today wtih follow up with me in clinic in 1 week after d/c Avodart 0.5 mg po daily, Flomax 0.4 mg pO BID , urology following Renal US showed CKD, Moderate hydronephrosis, will follow up Consultation Date/Type/Reason Admit Date/Time Sep 10, 2018 at 20:23 Initial Consult Date 09/11/18 Type of Consult NEPHROLOGY Requesting Provider: TYRONE HARTMAN NP Date/Time of Note DATE: 09/15/18 TIME: 08:28 Exam/Review of Systems Exam Vitals Vital Signs Date Temp Pulse Resp B/P (MAP) Pulse Ox O2 O2 Flow FiO2 Time Delivery Rate 09/15/18 98.5 83 16 128/65 96 08:00 (86) 09/15/18 Room Air 01:54 Intake and Output 09/14/18 09/14/18 09/15/18 1414:59 22:59 06:59 IntakeIntake Total 1900 ml 200 ml OutputOutput Total 1900 ml 300 ml BalanceBalance 0 ml -100 ml Exam Constitutional: alert Respiratory: clear to auscultation, congested cough, diminished breath sounds Cardiovascular: regular rate and rhythm, nl pulses Gastrointestinal: soft, non-tender Musculoskeletal: nl extremities to inspection, muscle weakness Extremities: normal pulses, no edema, Neurological: Non focal Results Result Diagram: 09/12/18 0650 09/14/18 0607 Results 24hrs Laboratory Tests Test 09/14/18 11:28 09/14/18 17:17 09/14/18 20:17 Bedside Glucose 216 190 74 Medications Medication Current Medications Miscellaneous Information 1 ea NOTE XX ; Start 09/10/18 at 20:30 Glucose (Glutose) 15 gm Q15M PRN PO DECREASED GLUCOSE; Start 09/10/18 at 20:30 Glucose (Glutose) 22.5 gm Q15M PRN PO DECREASED GLUCOSE; Start 09/10/18 at 20:30 Dextrose (D50w Syringe) 25 ml Q15M PRN IV DECREASED GLUCOSE; Start 09/10/18 at 20:30 Dextrose (D50w Syringe) 50 ml Q15M PRN IV DECREASED GLUCOSE; Start 09/10/18 at 20:30 Glucagon (Glucagen) 1 mg Q15M PRN IM DECREASED GLUCOSE; Start 09/10/18 at 20:30 Glucose (Glutose) 15 gm Q15M PRN BUCCAL DECREASED GLUCOSE; Start 09/10/18 at 20:30 IV Flush (NS 3 ml) 3 ml PER PROTOCOL IV ; Start 09/10/18 at 20:30 Acetaminophen (Tylenol Tab) 650 mg Q6H PRN PO .PAIN 1-3 OR TEMP Last administered on 09/15/18at 08:02; Admin Dose 650 MG; Start 09/10/18 at 20:30 Docusate Sodium (Colace) 100 mg Q12H PRN PO .CONSTIPATION; Start 09/10/18 at 20:30 Bisacodyl (Dulcolax) 5 mg DAILY PRN PO .CONSTIPATION; Start 09/10/18 at 20:30 Diagnostic Test (Pha) (Accu-Chek) 1 ea 02 XX ; Start 09/11/18 at 02:00 Dutasteride (Avodart) 0.5 mg DAILY PO Last administered on 09/14/18at 08:21; Admin Dose 0.5 MG; Start 09/11/18 at 09:00 Insulin Aspart (Novolog Insulin Pen) NOVOLOG *MILD* ALGORITHM WITH MEALS BEDTIME SC Last administered on 09/14/18at 17:22; Admin Dose 1 UNIT; Start 09/11/18 at 11:50 Fish Oil (Fish Oil) 2,000 mg BID PO Last administered on 09/14/18 20:19; Admin Dose 2,000 MG; Start 09/11/18 at 12:00 Ferrous Sulfate (Ferrous Sulfate (Ec)) 325 mg DAILY PO Last administered on 09/14/18at 08:21; Admin Dose 325 MG; Start 09/11/18 at 12:00 Tamsulosin HCl (Flomax) 0.4 mg BID PO Last administered on 09/14/18at 20:19; Admin Dose 0.4 MG; Start 09/11/18 at 21:00 Insulin Aspart (Novolog Insulin Pen) 7 unit WITH MEALS SC Last administered on 09/14/18at 17:23; Admin Dose 7 UNIT; Start 09/14/18 at 11:50 Insulin Glargine (Lantus) 20 units DAILY@0800 SC ; Start 09/15/18 at 08:00 Gabapentin (Neurontin) 100 mg TID PO Last administered on 09/14/18at 20:19; Admin Dose 100 MG; Start 09/14/18 at 21:00 JACQUELINE TAYLOR MD Sep 15, 2018 08:28
[2018-09-15] MEDS: FERROUS SULFATE (EC) 325 MG TAB PO SCH (08:38)
[2018-09-15] MEDS: FISH OIL 1,000 MG CAP PO SCH (08:38)
[2018-09-15] MEDS: DUTASTERIDE 0.5 MG CAP PO SCH (08:38)
[2018-09-15] MEDS: GABAPENTIN 100 MG CAP PO SCH ×2 (08:38→12:45)
[2018-09-15] MEDS: TAMSULOSIN (SR) 0.4 MG CAP PO SCH (08:38)
[2018-09-15] MEDS: INSULIN ASPART [NOVOLOG] 3 ML PEN SC SCH ×6 (08:41→17:14)
--- NOTE | 2018-09-15 13:51 | PDOCDIS ---
Discharge Instructions CONDITION [id number] Patient Condition: [id number] Stable HOME CARE INSTRUCTIONS: [id number] Your diet recommendation is: [id number] carb controlled diet FOLLOW UP/APPOINTMENTS Follow-up Plan [facility] Catheter care as instructed by your nurse TYRONE HARTMAN NP Sep 15, 2018 13:51
[2018-09-15] MEDS ORDERED: OMEG100024 PO (13:54)
[2018-09-15] MEDS ORDERED: FER325 PO (13:54)
[2018-09-15] MEDS ORDERED: TAMS-14 PO (13:54)
[2018-09-15] MEDS ORDERED: DUTA0.5C PO (13:54)
[2018-09-15] MEDS ORDERED: GLIP5TAB13 PO ×2 (13:54)
[2018-09-15] MEDS ORDERED: METF500T24 PO (13:54)
[2018-09-15] MEDS ORDERED: GABA100C14 PO (14:27)
--- NOTE | 2018-09-15 14:30 | DS ---
Date/Time of Note Date/Time of Note DATE: 09/15/18 TIME: 14:23 Discharge Summary Admission/Discharge Info Admit Date/Time Sep 10, 2018 at 20:23 Discharge Date/Time Discharge Diagnosis Uncontrolled hyperglycemia W/poorly managed DMII Enlarged prostate w/ bladder outlet obstruction Urinary retention requiring Lucas secondary to enlarged prostate. Acute kidney injury on CKD, likely postrenal.stable Chronic anemia Triglyceridemia subclinical hypothyroidism DM Neuropathy Patient Condition: Stable Consults dr.bejjani benites Procedures 09/10/2018: CT abdomen and pelvis: IMPRESSION: 1. Enlarged prostate gland. Correlate with PSA. 2. Marked distension of the bladder with mild trabeculated wall thickening, likely related to chronic bladder outlet obstruction. Mild bilateral hydroureter, also likely related to bladder outlet obstruction and urinary retention. Consider placement of Lucas catheter. 3. Enlarged left periaortic lymph node measures 2.0 cm. Neoplasm not excluded. Recommend attention on follow-up. RPTAT: QQ 09/10/2018: Renal ultrasound: IMPRESSION: 1. Mild bilateral renal atrophy. 2. Moderate bilateral hydronephrosis. 3. Massive enlargement of the prostate resulting in urinary bladder outlet obstruction with prominent distension of the urinary bladder. Hospital Course 78 yo M w/DM2,not taking meds 2/2 insurance limitations, here w/generalized weakness found to have BS 660.. She was started on insulin regimen, he was noted with A1c 12.9. Blood sugar stabilized under 200 range. Patient had diabetic education. Patient was also noted with enlarged prostate with bladder outlet obstruction for which he was being followed by urologist. Patient also had associated acute kidney injury on CKD likely postrenal. Renal function improved after Lucas was placed. Patient was continued on Flomax and Avodart. Lucas catheter discontinued, however patient continued to have retention requiring Lucas reinsertion. At this point, urologist recommended continuation of Lucas for another few more days with [facility] clinic follow-up. Case management to assist patient with [facility] clinic information. He is also Medi-[employer]tr pending status which patient needs to follow- up after discharge and was provided with resources per case management. Patient was also noted with subclinical hypothyroidism for which outpatient repeat labs was recommended. Renal function improved. As per enforcement manager, patient is stable to have metformin twice a day regimen based on current renal function. Approximately 60 m spent on coordinating the discharge on this patient. Patient was seen in collaboration with Follow-up Plan follow up with [facility] in 2weeks Catheter care as instructed by your nurse Primary Care Provider Care Physician No Primary Pending Labs Laboratory Tests Test 09/14/18 17:17 09/14/18 20:17 09/15/18 08:27 09/15/18 12:38 Bedside 190 74 184 187 Glucose mg/dL (70-220) mg/dL (70-220) mg/dL (70-220) mg/dL (70-220) TYRONE HARTMAN V. [employer] Sep 15, 2018 14:30
[2018-09-15 14:45] VITALS: BP 120/60; PULSE 90; RESP 18
== END 2018-09-15 18:18 | disposition home or self-care (01) | DRG 683 ==
LOC: E/R 18:26 → TEL 20:23 → 5EC 09-14 16:06
PROVIDERS: ADMIT Family Medicine; ATTEND Family Medicine
DX: N17.9 Acute kidney failure, unspecified (principal); N13.8 Other obstructive and reflux uropathy; E11.65 Type 2 diabetes mellitus with hyperglycemia; N13.30 Unspecified hydronephrosis; N40.1 Benign prostatic hyperplasia with lower urinary tract symptoms; R33.8 Other retention of urine; E11.22 Type 2 diabetes mellitus with diabetic chronic kidney disease; N18.9 Chronic kidney disease, unspecified; E03.9 Hypothyroidism, unspecified; D64.9 Anemia, unspecified; E11.40 Type 2 diabetes mellitus with diabetic neuropathy, unspecified; E78.1 Pure hyperglyceridemia
CPT/HCPCS: 36415; 74176; 76775; 80048; 80053; 80061; 81003; 82043; 82728; 82962; 83036; 83540; 83690; 83735; 84153; 84154; 84439; 84443; 85025; 86850; 86900; 86901; 93005; 96372; 96374; 96375; J1815; J2270; J2405; J7030; J7040